=== PATIENT | male | born 1950 | race Hispanic/Latino ===

== ENCOUNTER 2018-01-20 17:03 | Emergency (ER) | payer OTHER ==
--- OUTSIDE RECORDS SUMMARY | 2018-01-20 17:04 | XMS REPORT ---
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 Active Problem Hyperlipidemia E78.5 Active Problem Cholelithiasis without K80.20 Active cholecystitis Problem Essential hypertriglyceridemia E78.1 Active Problem Varicose veins I86.8 Active Problem Chronic back pain M54.9 Active Problem Osteoarthritis, multiple sites M15.9 Active Problem Chronic generalized pain R52 Active Problem Depression with anxiety F41.8 Active Problem Screening for prostate cancer Z12.5 Active Problem 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
--- OUTSIDE RECORDS SUMMARY | 2018-01-20 17:04 | XMS REPORT ---
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 Active Assessment Spinal stenosis of lumbar region M48.062 Active with neurogenic claudication Assessment GERD (gastroesophageal reflux K21.9 Active disease) Assessment Mild chronic anemia D64.9 Active Problem DJD (degenerative joint disease) M19.90 Active Assessment Depression with anxiety F41.8 Active Problem Overweight E66.3 Active Assessment Hyperlipidemia E78.5 Active Problem GERD (gastroesophageal reflux K21.9 Active disease) Problem Hypertension I10 Active Problem Hypothyroidism E03.9 Active Problem Spinal stenosis of lumbar region M48.062 Active with neurogenic claudication Problem Mild chronic anemia D64.9 Active Assessment Hypertension I10 Active Problem Chronic fatigue R53.82 Active Assessment Hypothyroidism E03.9 Active Problem Spondylosis of lumbar spine M47.816 [...] or M51.37 Active lumbosacral intervertebral disc Problem Pulmonary fibrosis J84.10 Active Medications Medication Code Code Instructions Start End Status Dosage System Date Lipitor [facility] 51083998330 20 MG Orally Active 1 tablet Once a day Levothyroxine ND 19541496961 75 MCG Orally Active 1 tablet Sodium Once a day on an empty stomach in the morning Ventolin HFA ND 33752863682 108 (90 Base) Active 2 puffs as MCG/ACT needed Inhalation every 6 hrs Norvasc [facility] 02458012885 5 MG Orally Active 1 tablet Once a day Citalopram [facility] 20218527337 20 MG Orally Active 1 tablet Hydrobromide Once a day Zyrtec Allergy [facility] 54936438285 10 MG Orally Active 1 tablet Once a day Cozaar [facility] 20649574402 100 MG Orally Active 1 tablet Once a day Aspir-81 [facility] 58888041701 81 MG Orally Active 1 tablet Once a day Ferrous Sulfate [facility] 34349216455 325 (65 Fe) MG August 26, Active 1 tablet Orally Once a 2017 day [place]iner [facility] 05593527236 7.5-325 MG Active 1 tablet Orally every 8 as needed hrs Nitrostat [facility] 97985896708 0.4 MG Active not Sublingual defined Protonix [facility] 27862997872 40 MG Orally Active 1 tablet Once a day Lyrica [facility] 55236898310 200 MG Orally Active 1 capsule Twice a day Results No Known Results Summary Purpose eClinicalWorks Submission
--- OUTSIDE RECORDS SUMMARY | 2018-01-20 17:04 | XMS REPORT ---
[...] Instructions Start End Status Dosage System Date Date Citalopram [facility] 78455335450 20 MG Orally Active 1 tablet Hydrobromide Once a day Nitrostat [facility] 55932207175 0.4 MG Active not Sublingual defined Aspir-81 [facility] 56038586938 81 MG Orally Active 1 tablet Once a day Zyrtec Allergy [facility] 25327158136 10 MG Orally Active 1 tablet Once a day Lyrica NDC 30655719158 200 MG Orally Active 1 capsule Twice a day Lipitor [facility] 34788498131 20 MG Orally Active 1 tablet Once a day Ferrous Sulfate [facility] 70788988822 325 (65 Fe) MG Active 1 tablet Orally twice a day [place] [facility] 62600429267 7.5-325 MG Active 1 tablet Orally every 8 as needed hrs Cozaar [facility] 96879729994 100 MG Orally Active 1 tablet Once a day Ventolin HFA [facility] 02350282090 108 (90 Base) Active 2 puffs as MCG/ACT needed Inhalation every 6 hrs Levothyroxine [facility] 72666401139 75 MCG Orally Active 1 tablet Sodium Once a day on an empty stomach in the morning Protonix [facility] 33298701747 40 MG Orally Active 1 tablet Once a day Norvasc [facility] 78885310246 5 MG Orally Active 1 tablet Once a day Results No Known Results Summary Purpose eClinicalWorks Submission
[2018-01-20] MEDS ORDERED: KETOROLAC 30 MG/ML INJ ONE (18:06)
[2018-01-20 18:14] LABS: Absolute Lymphocytes (CBC) 2.4 K/uL (0.7-4.9); Absolute Monocytes 0.7 K/uL (0.1-1.3); Absolute Neutrophil 4.6 K/uL (1.8-8.0); Basophils % 0.7 % (0-1.3); Hematocrit 36.2 % (39.6-49.0); MCH 32.5 pg (27.0-35.0); MCV 94.5 fL (80-100); Monocytes % 9.5 % (3.3-12.3); RBC Red Blood Cell Count 3.83 M/uL (4.33-5.43)
--- NOTE | 2018-01-20 18:22 | RAD REPORT ---
EXAM DESCRIPTION: RAD - Pelvis - 01/20/2018 6:12 pm CLINICAL HISTORY: Pelvic pain FINDINGS: No fracture or dislocation is seen. Mild osteoarthritis involves the hips. Bones are osteoporotic
[2018-01-20 18:23] LABS: Potassium 3.8 mmol/L (3.5-5.1)
--- NOTE | 2018-01-20 18:26 | RAD REPORT ---
EXAM DESCRIPTION: RAD - Lumbar Spine 3 Views - 01/20/2018 6:14 pm CLINICAL HISTORY: Back pain FINDINGS: The alignment of the lumbar spine is satisfactory. No fracture or dislocation is seen. The bones are osteoporotic. Posterior fusion involves L4 through S1 by pedicular screws united by sherman s
[2018-01-20 18:56] LABS: Urine Blood NEGATIVE (NEG); Urine Glucose NEGATIVE (NEG); Urine Protein NEGATIVE (NEG); Urine Specific Gravity 1.015 (1.005-1.030); Urine pH 5.5 (5.0-7.0)
--- NOTE | 2018-01-20 19:39 | ER ---
Nurse's Notes [facility] Name: Herb Link Age: 67 yrs Sex: Male : 1950 Arrival Date: 01/20/2018 Time: 17:05 Bed 14 Private MD: Kat Tapia Diagnosis: Low back pain;Neck Pain;Pain in left leg;Pain in right leg Presentation: 01/20 17:30 Presenting complaint: Patient states: bilateral leg and foot pain x 3 weeks. Pt reports ss that the bottom of his feet are bothering him the most. Transition of care: patient was not received from another setting of care. Onset of symptoms is unknown. Risk Assessment: Do you want to hurt yourself or someone else? Patient reports no desire to harm self or others. Initial Sepsis Screen: Does the patient meet any 2 criteria? No. Patient's initial sepsis screen is negative. Does the patient have a suspected source of infection? No. Patient's initial sepsis screen is negative. Note Pt reports history of chronic back problems. Care prior to arrival: None. 17:30 Method Of Arrival: Ambulatory ss 17:30 Acuity: FRIDA 4 ss Historical: - Allergies: 17:42 No Known Allergies; ss - PMHx: 17:42 Hypertension; Hypothyroidism; chronic back pain; ss - PSHx: 17:42 back surgery; left shoulder; cardiac stent; ss - Immunization history:: Adult Immunizations up to date. - Social history:: Smoking status: Patient/guardian denies using tobacco. - Ebola Screening: : Patient denies exposure to infectious person Patient denies travel to an Ebola-affected area in the 21 days before illness onset. Screenin:49 Abuse screen: Denies threats or abuse. Denies injuries from another. Nutritional bp screening: No deficits noted. Tuberculosis screening: No symptoms or risk factors identified. Fall Risk None identified. Assessment: 17:30 General: Appears in no apparent distress. comfortable, Behavior is calm, cooperative, bp appropriate for age. Pain: Complains of pain in right leg and left leg. Neuro: Level of Consciousness is awake, alert, obeys commands, Oriented to person, place, time, situation, Appropriate for age. Cardiovascular: No deficits noted. Respiratory: Airway is patent Respiratory effort is even, unlabored, Respiratory pattern is regular, symmetrical. GI: No signs and/or symptoms were reported involving the gastrointestinal system. : No signs and/or symptoms were reported regarding the genitourinary system. EENT: No deficits noted. Derm: No deficits noted. Musculoskeletal: Circulation, motion, and sensation intact. Range of motion: intact in all extremities. 18:30 Reassessment: ALL CURRENT ORDERS COMPLETED, RESULTS PENDING. bp 19:15 Reassessment: Patient appears in no apparent distress at this time. Patient and/or jb4 family updated on plan of care and expected duration. Pain level reassessed. Patient is alert, oriented x 3, equal unlabored respirations, skin warm/dry/pink. Patient states feeling better. Cardiovascular: Patient's skin is warm and dry. Respiratory: Airway is patent Respiratory effort is even, unlabored, Respiratory pattern is regular, symmetrical. 19:49 Reassessment: Patient appears in no apparent distress at this time. Patient and/or jb4 family updated on plan of care and expected duration. Pain level reassessed. Patient is alert, oriented x 3, equal unlabored respirations, skin warm/dry/pink. Discussed D/c, F/u with pt, and family member, denies questions or concerns. Vital Signs: 17:42 BP 126 / 83; Pulse 74; Resp 17; Temp 97.7(TE); Pulse Ox 97% on R/A; Weight 71.21 kg; ss Pain 9/10; 18:28 BP 124 / 80; Pulse 68; Resp 14; Pulse Ox 95% ; bp 19:00 BP 116 / 76; Pulse 66; Resp 16; Pulse Ox 95% on R/A; jb4 19:30 BP 113 / 83; Pulse 66; Resp 18; Pulse Ox 95% on R/A; jb4 ED Course: 17:05 Patient arrived in ED. sb2 17:06 Kat Tapia MD is Private Physician. sb2 17:20 [facility] cp 17:20 Naya Jefferson MD is Attending Physician. cp 17:32 Gigi Baltazar, CINDY is Primary Nurse. bp 17:40 Triage completed. ss 17:42 Arm band placed on right wrist. ss 17:48 Inserted saline lock: 18 gauge in right antecubital area, using aseptic technique. bp Blood collected. 17:49 Patient has correct armband on for positive identification. Bed in low position. Call bp light in reach. Side rails up X2. 18:13 XRAY Lumbar Spine (3 Views) In Process Unspecified. EDMS 18:13 XRAY Pelvis In Process Unspecified. EDMS 19:26 XRAY C Spine Ap/lat In Process Unspecified. EDMS 19:30 No provider procedures requiring assistance completed. IV discontinued, intact, jb4 bleeding controlled. 19:37 Kat Tapia MD is Referral Physician. cp Administered Medications: 18:02 Drug: TORadol 60 mg Route: IM; Site: right deltoid; bp 19:30 Follow up: Response: No adverse reaction; Pain is decreased jb4 Outcome: 19:38 Discharge ordered by MD. cp 19:52 Discharged to home ambulatory, with family. jb4 19:52 Condition: stable 19:52 Discharge instructions given to patient, family, Instructed on discharge instructions, follow up and referral plans. medication usage, Demonstrated understanding of instructions, follow-up care, medications, Prescriptions given X 2. 19:52 Patient left the ED. jb4 Signatures: Dispatcher [employer] EDMS Glenys Cabrera, RN RN Rasta Sanabria, PA PA cp Ivan Gilmore, RN RN jb4 Gigi Baltazar, RN RN bp Flores Harrell sb2
--- NOTE | 2018-01-20 19:39 | EDPHYS ---
Physician Documentation [facility] Name: Herb Link Age: 67 yrs Sex: Male : 1950 Arrival Date: 01/20/2018 Time: 17:05 Bed 14 Private MD: Kat Tapia ED Physician Naya Jefferson HPI: 01/20 17:35 This 67 yrs old Male presents to ER via Ambulatory with complaints of Leg Pain.cp 17:35 The patient presents with pain, that is acute. The complaints affect the right leg and cp left leg. Context: resulted from an unknown cause, the patient can fully bear weight, the patient is able to ambulate, without difficulty, Problem is a result from a previous injury: No. Onset: The symptoms/episode began/occurred 3 week(s) ago. Historical: - Allergies: 17:42 No Known Allergies; ss - PMHx: 17:42 Hypertension; Hypothyroidism; chronic back pain; ss - PSHx: 17:42 back surgery; left shoulder; cardiac stent; ss - Immunization history:: Adult Immunizations up to date. - Social history:: Smoking status: Patient/guardian denies using tobacco. - Ebola Screening: : Patient denies exposure to infectious person Patient denies travel to an Ebola-affected area in the 21 days before illness onset. ROS: 17:40 Constitutional: Negative for body aches, chills, fever, poor PO intake. cp 17:40 Eyes: Negative for injury, pain, redness, and discharge. cp 17:40 Cardiovascular: Negative for chest pain, edema, palpitations. cp 17:40 Respiratory: Negative for cough, shortness of breath, wheezing. 17:40 Neck: Positive for pain with movement, pain at rest, tenderness. cp 17:40 Abdomen/GI: Negative for abdominal pain, nausea, vomiting, and diarrhea, black/tarry stool, rectal bleeding. 17:40 Back: Positive for pain at rest, pain with movement, of the lumbar area. 17:40 : Negative for urinary symptoms, pelvic pain, flank pain, testicular pain 17:40 MS/extremity: Positive for pain, of the right leg and left leg, burning bottom of feet, Negative for injury or acute deformity, decreased range of motion, deformity, paresthesias. 17:40 Skin: Negative for cellulitis, rash. 17:40 Neuro: Negative for altered mental status, headache, syncope, near syncope, weakness. 17:40 All other systems are negative. Exam: 17:48 Head/Face: Normocephalic, atraumatic. cp 17:48 Constitutional: The patient appears in no acute distress, alert, awake, comfortable, non-diaphoretic, non-toxic, well developed, well nourished. 17:50 Eyes: Periorbital structures: appear normal, Pupils: equal, round, and reactive to cp light and accomodation, Extraocular movements: intact throughout, Conjunctiva: normal, no exudate, no injection, Sclera: no appreciated abnormality, Lids and lashes: appear normal, bilaterally. 17:50 ENT: External ear(s): are unremarkable, Ear canal(s): are normal, clear, TM's: bulging, is not appreciated, bilaterally, dullness, bilaterally, erythema, is not appreciated, bilaterally, Nose: is normal, Mouth: is normal, Posterior pharynx: is normal, airway is patent, no erythema, no exudate. 17:50 Neck: ROM/movement: pain, that is mild, limited range of motion, is not appreciated, cp nuchal rigidity, is not appreciated, Lymph nodes: no appreciated lymphadenopathy. 17:50 Chest/axilla: Inspection: normal, Palpation: is normal, no crepitus, no tenderness. 17:50 Cardiovascular: Rate: normal, Rhythm: regular, Edema: is not appreciated, JVD: is not appreciated. 17:50 Respiratory: the patient does not display signs of respiratory distress, Respirations: normal, no use of accessory muscles, no retractions, no splinting, no tachypnea, labored breathing, is not present, Breath sounds: are clear throughout, no decreased breath sounds, no stridor, no wheezing. 17:50 Abdomen/GI: Inspection: abdomen appears normal, Bowel sounds: active, all quadrants, Palpation: abdomen is soft and non-tender, in all quadrants, rebound tenderness, is not appreciated, involuntary guarding, is not appreciated. 17:50 Back: pain, that is mild, ROM is normal, vertebral tenderness, is not appreciated, Straight leg raises: of both lower extremities does not illicit pain. 17:50 Musculoskeletal/extremity: Extremities: grossly normal except: noted in the right leg and left leg: pain, tenderness, There is no evidence of decreased ROM, deformity, swelling, Pulses: noted to be 2+ in the right radial artery, right dorsalis pedis artery, left radial artery and left dorsalis pedis artery, Calf tenderness, is absent, Sensation intact. Joints: All joints appear normal with full range of motion. Weight bearing: able to fully bear weight. 17:50 Skin: cellulitis, is not appreciated, no rash present. 17:50 Neuro: Orientation: to person, place \T\ time. Mentation: is normal, Cerebellar function: is grossly normal, Motor: moves all fours, strength is normal, Sensation: no obvious gross deficits, Gait: is steady, at a normal pace, without difficulty. Vital Signs: 17:42 BP 126 / 83; Pulse 74; Resp 17; Temp 97.7(TE); Pulse Ox 97% on R/A; Weight 71.21 kg; ss Pain 9/10; 18:28 BP 124 / 80; Pulse 68; Resp 14; Pulse Ox 95% ; bp 19:00 BP 116 / 76; Pulse 66; Resp 16; Pulse Ox 95% on R/A; jb4 19:30 BP 113 / 83; Pulse 66; Resp 18; Pulse Ox 95% on R/A; jb4 MDM: 17:20 Patient medically screened. 19:37 Data reviewed: vital signs, nurses notes, lab test result(s), radiologic studies, plain cp films, and as a result, I will discharge patient. 01/20 17:35 Order name: CBC with Diff; Complete Time: 18:43 cp 01/20 18:43 Interpretation: Normal except: RBC 3.83; HGB 12.4; HCT 36.2. cp 01/20 17:35 Order name: BMP; Complete Time: 18:43 cp 01/20 18:43 Interpretation: Normal except: CL 109; BUN 23; GFR 66; CA 8.4. 01/20 17:34 Order name: XRAY Lumbar Spine (3 Views); Complete Time: 18:43 cp 01/20 17:34 Order name: XRAY Pelvis; Complete Time: 18:43 cp 01/20 17:35 Order name: CK; Complete Time: 18:43 cp 01/20 18:01 Order name: Urine Dipstick--Ancillary (enter results); Complete Time: 19:40 eb 01/20 19:40 Interpretation: Reviewed. cp 01/20 17:34 Order name: Urine Dipstick-Ancillary (obtain specimen); Complete Time: 18:02 cp 01/20 19:00 Order name: XRAY C Spine Ap/lat cp Administered Medications: 18:02 Drug: TORadol 60 mg Route: IM; Site: right deltoid; bp 19:30 Follow up: Response: No adverse reaction; Pain is decreased jb4 Disposition: 01/20/18 19:38 Discharged to Home. Impression: Low back pain, Neck Pain, Pain in left leg, Pain in right leg. - Condition is Stable. - Discharge Instructions: Back Pain, Adult, Lumbosacral Radiculopathy, Musculoskeletal Pain, Peripheral Neuropathy, Back Exercises, [id number]. - Prescriptions for Cyclobenzaprine 10 mg Oral Tablet - take 1 tablet by ORAL route every 8 hours As needed no driving while taking medication; 20 tablet. Medrol (Chucky) 4 mg Oral Tablets, Dose Pack - take 1 tablet by ORAL route as directed - follow package instructions; 1 packet. - Medication Reconciliation Form, Thank You Letter, Antibiotic Education, Prescription Opioid Use form. - Follow up: Kat Tapia MD; When: 2 - 3 days; Reason: Recheck today's complaints. - Problem is new. - Symptoms have improved. Addendum: 01/24/2018 17:25 Co-signature as Attending Physician, Naya Jefferson MD. m a2 Signatures: Dispatcher [employer] EDMS Glenys Cabrera RN RN ss Page, Corey, PA PA cp Ivan Gilmore RN RN jb4 Gigi Baltazar RN RN bp Alzahri, Mohammad, MD MD ma2 Corrections: (The following items were deleted from the chart) 01/20 18:43 18:43 Normal except: CL 109; BUN 23; GFR 66. cp cp 19:52 19:38 01/20/2018 19:38 Discharged to Home. Impression: Low back pain; Neck Pain; Pain jb4 in left leg; Pain in right leg. Condition is Stable. Forms are Medication Reconciliation Form, Thank You Letter, Antibiotic Education, Prescription Opioid Use. Follow up: Kat Tapia; When: 2 - 3 days; Reason: Recheck today's complaints. Problem is new. Symptoms have improved. cp
--- NOTE | 2018-01-20 19:52 | RAD REPORT ---
EXAM DESCRIPTION: RAD - C Spine Ap/Lat - 01/20/2018 7:26 pm CLINICAL HISTORY: Neck pain FINDINGS: The alignment of the cervical spine is satisfactory. No fracture or dislocation is seen. Minimal spondylosis involves mid and distal cervical spine
[2018-01-20 20:50] VITALS: TEMP 97.7
[2018-01-20 20:51] VITALS: O2SAT 95
[2018-01-20 20:53] VITALS: BP 113/83
== END 2018-01-20 19:52 | disposition home or self-care (01) ==
LOC: ER 17:03
DX: M54.5 Low back pain (principal); M54.2 Cervicalgia; M79.605 Pain in left leg; M79.604 Pain in right leg; M16.0 Bilateral primary osteoarthritis of hip; M81.0 Age-related osteoporosis without current pathological fracture; Z98.1 Arthrodesis status
CPT/HCPCS: 36415; 72040; 72100; 72170; 80048; 81003; 82550; 85025; 96372; 99284

== ENCOUNTER 2020-12-20 13:42 | Emergency (ER) | payer OTHER ==
[2020-12-20] MEDS ORDERED: TETANUS & DIPHTHERIA TOX,ADULT 0.5 ML VIAL ONE (15:22)
--- NOTE | 2020-12-20 16:14 | RAD REPORT ---
EXAM DESCRIPTION: RAD - Hand Left 3 View - 12/20/2020 3:26 pm CLINICAL HISTORY: PAIN, no specific trauma history provided COMPARISON: Left hand 2009 FINDINGS: PA and lateral views of the left hand were submitted. There is gauze or bandaging material second digit at the PIP joint level. Numerous punctate radiopaque densities are present in the soft tissues. These are new from the prior study. No gross fracture is identified. The punctate densities appear to be foreign bodies rather than bone fragments. Fracture of the radial side second proximal p halanx head cannot be entirely excluded. Changes to the tuft of the second distal phalanx unchanged from 2009. Punctate foreign bodies near th e second MCP joint also stable from prior imaging. IMPRESSION: Soft tissue wound around the PIP joint second digit. Punctate foreign bodies are identif ied near the joint as well. Foreign bodies could potentially be skin contamination and can be re-evaluated after wound cleaning. No gross acute bone deformity seen. Nondisplaced fracture involving the radial side second proximal p halanx head cannot be entirely excluded.
--- NOTE | 2020-12-20 17:16 | EDPHYS ---
Physician Documentation [facility] Name: Herb Pearce Age: 70 yrs Sex: Male : 1950 Arrival Date: 12/20/2020 Time: 13:45 Bed 30 Private MD: ED Physician Rasta Hughes HPI: 12/20 14:21 This 70 yrs old Male presents to ER via Ambulatory with complaints of jmm Laceration - finger. 14:21 The patient or guardian reports injury, a laceration, dirty. Onset: The jmm symptoms/episode began/occurred acutely, today. Modifying factors: The symptoms are alleviated by nothing, the symptoms are aggravated by nothing. Patient lacerated his left index finger while using a sharpening saw.. Not up-to-date on tetanus immunization. Historical: - Allergies: 14:06 No Known Allergies; lp1 - PMHx: 14:06 chronic back pain; Hypertension; Hypothyroidism; lp1 - Immunization history:: Adult Immunizations up to date, Last tetanus immunization: unknown. - Social history:: Smoking status: Patient denies any tobacco usage or history of. ROS: 14:21 Constitutional: Negative for fever, chills, and weight loss, Cardiovascular: Negative jmm for chest pain, palpitations, and edema, Respiratory: Negative for shortness of breath, cough, wheezing, and pleuritic chest pain. 14:21 MS/extremity: Positive for laceration. 14:21 All other systems are negative. Exam: 14:21 Constitutional: This is a well developed, well nourished patient who is awake, alert, jmm and in no acute distress. Head/Face: atraumatic. Eyes: EOMI, no conjunctival erythema appreciated ENT: Moist Mucus Membranes Neck: Trachea midline, Supple Chest/axilla: Normal chest wall appearance and motion. Cardiovascular: Regular rate and rhythm. No edema appreciated Respiratory: Normal respirations, no respiratory distress appreciated Abdomen/GI: Non distended, soft Back: Normal ROM 14:21 Musculoskeletal/extremity: Full extension appreciated to the PIP of the left index finger, less than 2-second capillary refill, neurovascular intact. 14:21 Skin: 3 cm laceration noted to the left index finger.. 14:21 Neuro: Orientation: is normal, Mentation: is normal, Memory: is normal. 14:21 Psych: Behavior/mood is pleasant, cooperative. Vital Signs: 14:04 BP 128 / 78; Pulse 80; Resp 18; Temp 98; Pulse Ox 98% on R/A; Weight 77.11 kg (R); lp1 Height 5 ft. 6 in. (167.64 cm); Pain 8/10; 14:04 Body Mass Index 27.44 (77.11 kg, 167.64 cm) lp1 Laceration: 17:15 Wound Repair of 3cm ( 1.2in ) subcutaneous laceration to dorsal aspect of proximal jmm phalanx of left index finger. Distal neuro/vascular/tendon intact. Anesthesia: Digital block administered with 3 mls of 0.5% marcaine. Wound prep: Extensive cleansing, Copious irrigation. Skin closed with 7 5-0 Prolene using simple sutures and sterile technique. Patient tolerated well. MDM: 14:21 Patient medically screened. trip 17:15 Data reviewed: vital signs, nurses notes. Counseling: I had a detailed discussion with ankur the patient and/or guardian regarding: the historical points, exam findings, and any diagnostic results supporting the discharge/admit diagnosis, radiology results, the need for outpatient follow up, to return to the emergency department if symptoms worsen or persist or if there are any questions or concerns that arise at home. 12/20 14:44 Order name: Hand Left 3 View XRAY; Complete Time: 16:18 [facility] Administered Medications: 15:02 Drug: Tetanus-Diphtheria Toxoid Adult 0.5 ml {M[employer]: [employer]. Exp: aa5 07/18/2022. Lot #: [id number]. } Route: IM; Site: right deltoid; 15:20 Follow up: Response: No adverse reaction aa5 Disposition: 12/21 16:20 Co-signature as Attending Physician, Rasta Hughes MD I agree with the assessment and trip plan of care. Disposition Summary: 12/20/20 17:16 Discharge Ordered Location: Home [facility] Condition: Stable [facility] Diagnosis - Finger Laceration [facility] Followup: [facility] - With: Private Physician - When: 7 - 10 days - Reason: Recheck today's complaints, Continuance of care, Re-evaluation by your physician Discharge Instructions: - Discharge Summary Sheet [facility] - Laceration Care, Adult [facility] Forms: - Medication Reconciliation Form [facility] - Thank You Letter jmm - Antibiotic Education jmm - Prescription Opioid Use jmleonor Prescriptions: - Doxycycline Hyclate 100 mg Oral Tablet - take 1 tablet by ORAL route every 12 hours; 20 tablet; Refills: 0, Product ankur Selection Permitted Signatures: Dispatcher [employer] Rasta Rodarte MD MD cha Mickail, Joel, PA PA jmm Calderon, Audri RN RN aa5 Mariella Siddiqui RN RN lp1
--- NOTE | 2020-12-20 17:16 | ER ---
Nurse's Notes [facility] Name: Herb Pearce Age: 70 yrs Sex: Male : 1950 Arrival Date: 12/20/2020 Time: 13:45 Bed 30 Private MD: Diagnosis: Finger Laceration Presentation: 12/20 14:04 Chief complaint: Patient states: Was using precision grinder to sharpen tool and finger slipped; lp1 laceration to left 1st finger, bleeding stopped at this time. Coronavirus screen: At this time, the client does not indicate any symptoms associated with coronavirus-19. Ebola Screen: No symptoms or risks identified at this time. Complicating Factors: There are no complicating factors for this patient. Initial Sepsis Screen: Does the patient meet any 2 criteria? No. Patient's initial sepsis screen is negative. Does the patient have a suspected source of infection? No. Patient's initial sepsis screen is negative. Risk Assessment: Do you want to hurt yourself or someone else? Patient reports no desire to harm self or others. Onset of symptoms was December 20, 2020. 14:04 Method Of Arrival: Ambulatory lp1 14:04 Acuity: FRIDA 4 lp1 Historical: - Allergies: 14:06 No Known Allergies; lp1 - PMHx: 14:06 chronic back pain; Hypertension; Hypothyroidism; lp1 - Immunization history:: Adult Immunizations up to date, Last tetanus immunization: unknown. - Social history:: Smoking status: Patient denies any tobacco usage or history of. Screenin:06 Abuse screen: Denies threats or abuse. Denies injuries from another. Nutritional lp1 screening: No deficits noted. Tuberculosis screening: No symptoms or risk factors identified. Fall Risk None identified. Assessment: 15:00 General: Appears comfortable, Behavior is calm, cooperative. Pain: Complains of pain in aa5 left index finger. Neuro: Level of Consciousness is awake, alert, obeys commands, Oriented to person, place, time, situation. Cardiovascular: Patient's skin is warm and dry. Respiratory: Airway is patent Respiratory effort is even, unlabored, Respiratory pattern is regular, symmetrical. GI: Abdomen is round non-distended. : No signs and/or symptoms were reported regarding the genitourinary system. EENT: No signs and/or symptoms were reported regarding the EENT system. Derm: Skin is pink, warm \T\ dry. Musculoskeletal: Reports pain in left index finger. Injury Description: Laceration sustained to left index finger is 2.6 to 7.5 cm long, is bleeding a small amount a dressing was applied. 15:04 Reassessment: Patient is alert, oriented x 3, equal unlabored respirations, skin aa5 warm/dry/pink. Awaiting x-ray result. 17:00 Reassessment: PA irrigated wound to left index finger with saline and Betadine prior to aa5 laceration repair. . 17:30 Reassessment: Patient is alert, oriented x 3, equal unlabored respirations, skin aa5 warm/dry/pink. Vital Signs: 14:04 BP 128 / 78; Pulse 80; Resp 18; Temp 98; Pulse Ox 98% on R/A; Weight 77.11 kg (R); lp1 Height 5 ft. 6 in. (167.64 cm); Pain 8/10; 14:04 Body Mass Index 27.44 (77.11 kg, 167.64 cm) lp1 ED Course: 13:45 Patient arrived in ED. as 14:06 Triage completed. lp1 14:06 Arm band placed on right wrist. lp1 14:06 Patient has correct armband on for positive identification. lp1 14:15 Leobardo Ford PA is PHCP. [facility] 14:15 Rasta Hughes MD is Attending Physician. [facility] 15:02 Raquel Hall, CINDY is Primary Nurse. aa5 15:26 Hand Left 3 View XRAY In Process Unspecified. EDMS 17:00 Assist provider with laceration repair on left index finger that was between 2.6 to 7.5 aa5 cm using sutures. Set up tray. Performed by Leobardo Ford PA Dressed with non-adherent dressing and finger splint to immobilize finger per PA. Patient tolerated well. 17:30 Patient did not have IV access during this emergency room visit. aa5 Administered Medications: 15:02 Drug: Tetanus-Diphtheria Toxoid Adult 0.5 ml {Front Desk Representative: [employer]. Exp: aa5 07/18/2022. Lot #: [id number]. } Route: IM; Site: right deltoid; 15:20 Follow up: Response: No adverse reaction aa5 Outcome: 17:16 Discharge ordered by MD. pascual 17:30 Discharged to home ambulatory, with family. aa5 17:30 Condition: stable 17:30 Discharge instructions given to patient, family, Instructed on discharge instructions, follow up and referral plans. medication usage, wound care, Demonstrated understanding of instructions, follow-up care, medications, wound care, Prescriptions given X 1. 17:40 Patient left the ED. aa5 Signatures: Dispatcher [employer] EDMS Leobardo Ford PA PA jmm Martinez, Amelia as Calderon, Audri, RN RN aa5 Mariella Siddiqui, RN RN lp1
[2020-12-20 17:48] VITALS: BP 128/78; TEMP 98; O2SAT 98
== END 2020-12-20 17:40 | disposition home or self-care (01) ==
LOC: ER 13:42
PROC: 0JQK0ZZ Repair Left Hand Subcutaneous Tissue and Fascia, Open Approach (ICD-10-PCS; principal; 2020-12-20)
DX: S61.211A Laceration without foreign body of left index finger without damage to nail, initial encounter (principal); W27.0XXA Contact with workbench tool, initial encounter; Z23 Encounter for immunization; I10 Essential (primary) hypertension
CPT/HCPCS: 90471; 90714; 99284

== ENCOUNTER 2022-09-20 14:34 | Emergency (ER) | payer OTHER ==
--- OUTSIDE RECORDS SUMMARY | 2022-09-20 14:39 | XMS REPORT | Continuity of Care Document ---
:1950 Author Organization [facility] t Address [address] [place] [address] [place] [id number] Care Team Providers Name Role Phone Maral Medeiros Attending Clinician Unavailable Kat Tapia Attending Clinician Unavailable Payers Payer Name Policy Type Policy Number Effective Date Expiration Date [facility] [id number] [facility] 00:[facility] [facility] MEDICARE MB [id number] 2013 [facility] N[facility]ITAS 00:00:00 - [facility] [id number] 2017 [facility] 00:00:00 - [facility] MEDICARE [id number] 2013 [facility] [place]OVIT[place] 00:00:00 - [facility] [id number] 2017 [facility] 00:00:[address] - [facility] MEDICARE MB [id number] 2013 [facility] [place] 00:00:[address] - [facility] MEDICARE MB [id number] 2013 [facility] NOVITAS 00:00:00 [facility] [id number] 2017 [facility] 00:00:00 [facility] Problems Condition Condition Condition Status Onset Resolution Last Treating Co mments Source Name Details Category Date Date Treatment Clinician Date Screening Screening Problem Com mon for for Spirit malignant prostate - 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 - [facility] disease) [facility] Hypertensi Hypertensi Problem C ommon on on [facility] Hypothyroi Hypothyroi Problem C ommon dism dism [facility] Overweight Overweight Problem C ommon [facility] 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 [facility] Hyperlipid Hyperlipid Problem C ommon emia emia [facility] Pain Chronic Problem Common generalize Spirit d pain - [facility] 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 Medica l claudicati Center on [id number] Chronic Problem Common fatigue [facility] Allergic Allergic Problem Commo n rhinitis rhinitis, Spiri t unspecifie - [facility] d [facility] y, Medical unspecifie Center d trigger Allergies, Adverse Reactions, Alerts Allergy Allergy Status Severity Reaction(s) Onset Inactive Treating Comm ents Source Name Type Date Date Clinician lisinopr lisinopr Active Unknown Commo n il il [facility] Social History Social Habit Start Date Stop Date Quantity Comments Source History of Tobacco Use Co mmon [facility] Sex Assigned At Com mon [facility] Smoking Status Start Date Stop Date Source Never Smoker Common [facility] Medications Ordered Filled Start Stop Current Ordering Indication Dosage Frequency Signature Comments Components Source Medication Medication Date Date Medication? Clinician (SIG) Name Name Lyrica 200 Lyrica 200 2021-03 No 1{capsu QD Lyrica 200 MG MG 1-30 le} MG 00:00: 00 Flonase 50 Flonase 50 2021-03 No 2{spray QD Flonase 50 MCG/ACT MCG/ACT 1-30 _in_eac MCG/ACT 00:00: h_nostr 00 il} Pregabalin Pregabalin 2021-03 No Pregabalin 200 MG 200 MG 0-28 200 MG 00:00: 00 Pregabalin Pregabalin 2021-03 No Pregabalin 200 MG 200 MG 0-28 200 MG 00:00: 00 Lyrica 200 Lyrica 200 2021-0 No 1{capsu TID Lyrica 200 MG MG 6-20 le} MG 00:00: 00 Lyrica 200 Lyrica 200 2021-0 No 1{capsu TID Lyrica 200 MG MG 6-20 le} MG 00:00: 00 Lyrica 200 Lyrica 200 2021-0 No 1{capsu BID Lyrica 200 MG MG 5-13 le} MG 00:00: 00 Lyrica 200 Lyrica 200 2021-0 No 1{capsu BID Lyrica 200 MG MG 5-13 le} MG 00:00: 00 Lyrica 200 Lyrica 200 2021-0 No 1{capsu BID Lyrica 200 MG MG 2-03 le} MG 00:00: 00 Lyrica 200 Lyrica 200 2021-0 No 1{capsu BID Lyrica 200 MG MG 2-03 le} MG 00:00: 00 Zofran Zofran 2020-0 Yes Na Tapia 1 tablet Co mmon -27 [facility] 00:00: - [facility] 00 [facility] Zofran 4 MG Zofran 4 MG 2020-0 No 1{table Zofran 4 1-27 t} MG 00:00: 00 Zofran 4 MG Zofran 4 MG 2020-0 No 1{table Zofran 4 1-27 t} MG 00:00: 00 Zofran 4 MG Zofran 4 MG 2020-0 No 1{table Zofran 4 1-27 t} MG 00:00: 00 Zofran 4 MG Zofran 4 MG 2020-0 No 1{table Zofran 4 1-27 t} MG 00:00: 00 Zofran 4 MG Zofran 4 MG 2020-0 No 1{table Zofran 4 1-27 t} MG 00:00: 00 Zofran 4 MG Zofran 4 MG 2020-0 No 1{table Zofran 4 1-27 t} MG 00:00: 00 Zofran 4 MG Zofran 4 MG 2020-0 No 1{table Zofran 4 1-27 t} MG 00:00: 00 Zofran 4 MG Zofran 4 MG 2020-0 No 1{table Zofran 4 1-27 t} MG 00:00: 00 Zofran 4 MG Zofran 4 MG 2020-0 No 1{table Zofran 4 1-27 t} MG 00:00: 00 Zofran 4 MG Zofran 4 MG 2020-0 No 1{table Zofran 4 1-27 t} MG 00:00: 00 Zofran 4 MG Zofran 4 MG 2020-0 No 1{table Zofran 4 1-27 t} MG 00:00: 00 Zofran 4 MG Zofran 4 MG 2020-0 No 1{table Zofran 4 1-27 t} MG 00:00: 00 Zofran 4 MG Zofran 4 MG 2020-0 No 1{table Zofran 4 1-27 t} MG 00:00: 00 Zofran 4 MG Zofran 4 MG 2020-0 No 1{table Zofran 4 1-27 t} MG 00:00: 00 Famotidine Famotidine 2019-1 Yes Na Tapia 1 tablet Common 2-04 as needed [facility] 00:00: - [facility] 00 [facility] Famotidine Famotidine 2019- No 1{table BID Famotidine 40 MG 40 MG 2-04 t_as_ne 40 MG 00:00: eded} Famotidine Famotidine 2018-03 No 1{table BID Famotidine 40 MG 40 MG 2-04 t_as_ne 40 MG 00:00: eded} Famotidine Famotidine 2018- No 1{table BID Famotidine 40 MG 40 MG 2-04 t_as_ne 40 MG 00:00: eded} Famotidine Famotidine 2018- No 1{table BID Famotidine 40 MG 40 MG 2-04 t_as_ne 40 MG 00:00: eded} Famotidine Famotidine 2018- No 1{table BID Famotidine 40 MG 40 MG 2-04 t_as_ne 40 MG 00:00: eded} Famotidine Famotidine 2018- No 1{table BID Famotidine 40 MG 40 MG 2-04 t_as_ne 40 MG 00:00: eded} Famotidine Famotidine 2018- No 1{table BID Famotidine 40 MG 40 MG 2-04 t_as_ne 40 MG 00:00: eded} Famotidine Famotidine 2018- No 1{table BID Famotidine 40 MG 40 MG 2-04 t_as_ne 40 MG 00:00: eded} Famotidine Famotidine 2018- No 1{table BID Famotidine 40 MG 40 MG 2-04 t_as_ne 40 MG 00:00: eded} Famotidine Famotidine 2018- No 1{table BID Famotidine 40 MG 40 MG 2-04 t_as_ne 40 MG 00:00: eded} Famotidine Famotidine 2018- No 1{table BID Famotidine 40 MG 40 MG 2-04 t_as_ne 40 MG 00:00: eded} Famotidine Famotidine 2018- No 1{table BID Famotidine 40 MG 40 MG 2-04 t_as_ne 40 MG 00:00: eded} -81 Yes Na Tapia 1 tablet [facility] [place] Yes Na Tapia 1 tablet Common as needed [facility] Lipitor Lipitor Yes Na Tapia 1 tablet Co mmon [facility] Lyrica Lyrica Yes Na Tapia 1 capsule Com mon [facility] Ferrous Ferrous Yes Na Tapia 1 tablet Co mmon Sulfate Sulfate [facility] Ventolin Ventolin Yes Na Tapia 2 puffs as Common HFA HFA needed [facility] Cozaar Cozaar Yes Na Tapia 1 tablet Comm on [facility] Nitrostat Nitrostat Yes Na Tapia not Co mmon defined [facility] Ferrous Ferrous Yes Na Tapia 1 tablet Co mmon Sulfate Sulfate [facility] Norvasc Norvasc Yes Na Tapia 1 tablet Co mmon [facility] Levothyroxi Levothyroxi Yes Na Tapia 1 tablet Common ne Sodium ne Sodium on an Spir it empty - [facility] stomach in [facility] Citalopram Citalopram Yes Na Tapia 1 tablet Common Hydrobromid Hydrobromid S pirit e e [facility] Ranitidine Ranitidine Yes Na Tapia 1 capsule Common HCl HCl [facility] Zyrtec Zyrtec Yes Na Tapia 1 tablet Comm on Allergy Allergy [facility] Lipitor 20 Lipitor 20 No 1{table QD Lipitor 20 MG MG t} MG Nitrostat Nitrostat No Nitrostat 0.4 MG 0.4 MG 0.4 MG [place] No 1{table TID [place] 7.5-325 MG 7.5-325 MG t_as_ne 7.5-325 MG eded} Levothyroxi Levothyroxi No QD Levothyrox ne Sodium ne Sodium ine Sodium 75 MCG 75 MCG 75 MCG Ventolin Ventolin No 2{puffs QID Ventolin HFA 108 (90 HFA 108 (90 _as_nee HFA 108 Base) Base) ded} (90 Base) MCG/ACT MCG/ACT MCG/ACT Famotidine Famotidine No 1{table BID Famotidine 40 MG 40 MG t_as_ne 40 MG eded} Ranitidine Ranitidine No 1{capsu BID Ranitidine HCl 150 MG HCl 150 MG le} HCl 150 MG Aspir-81 81 Aspir-81 81 No 1{table QD Aspir-81 MG MG t} 81 MG Citalopram Citalopram No 1{table QD Citalopram Hydrobromid Hydrobromid t} Hydrobromi e 20 MG e 20 MG de 20 MG Ferrous Ferrous No 1{table BID Ferrous Sulfate 325 Sulfate 325 t} Sulfate (65 Fe) MG (65 Fe) MG 325 (65 Fe) MG ZyrTEC ZyrTEC No 1{table QD ZyrTEC Allergy 10 Allergy 10 t} Allergy 10 MG MG MG Lyrica 200 Lyrica 200 No 1{capsu BID Lyrica 200 MG MG le} MG Norvasc 5 Norvasc 5 No 1{table QD Norvasc 5 MG MG t} MG Ferrous Ferrous No 1{table BID Ferrous Sulfate 325 Sulfate 325 t} Sulfate (65 Fe) MG (65 Fe) MG 325 (65 Fe) MG Cozaar 100 Cozaar 100 No 1{table QD Cozaar 100 MG MG t} MG Lipitor 20 Lipitor 20 No 1{table QD Lipitor 20 MG MG t} MG Nitrostat Nitrostat No Nitrostat 0.4 MG 0.4 MG 0.4 MG [place] No 1{table TID [place] 7.5-325 MG 7.5-325 MG t_as_ne 7.5-325 MG eded} Levothyroxi Levothyroxi No QD Levothyrox ne Sodium ne Sodium ine Sodium 75 MCG 75 MCG 75 MCG Ventolin Ventolin No 2{puffs QID Ventolin HFA 108 (90 HFA 108 (90 _as_nee HFA 108 Base) Base) ded} (90 Base) MCG/ACT MCG/ACT MCG/ACT Famotidine Famotidine No 1{table BID Famotidine 40 MG 40 MG t_as_ne 40 MG eded} Ranitidine Ranitidine No 1{capsu BID Ranitidine HCl 150 MG HCl 150 MG le} HCl 150 MG Aspir-81 81 Aspir-81 81 No 1{table QD Aspir-81 MG MG t} 81 MG Citalopram Citalopram No 1{table QD Citalopram Hydrobromid Hydrobromid t} Hydrobromi e 20 MG e 20 MG de 20 MG Ferrous Ferrous No 1{table BID Ferrous Sulfate 325 Sulfate 325 t} Sulfate (65 Fe) MG (65 Fe) MG 325 (65 Fe) MG ZyrTEC ZyrTEC No 1{table QD ZyrTEC Allergy 10 Allergy 10 t} Allergy 10 MG MG MG Lyrica 200 Lyrica 200 No 1{capsu BID Lyrica 200 MG MG le} MG Norvasc 5 Norvasc 5 No 1{table QD Norvasc 5 MG MG t} MG Ferrous Ferrous No 1{table BID Ferrous Sulfate 325 Sulfate 325 t} Sulfate (65 Fe) MG (65 Fe) MG 325 (65 Fe) MG Cozaar 100 Cozaar 100 No 1{table QD Cozaar 100 MG MG t} MG Ferrous Ferrous No 1{table BID Ferrous Sulfate 325 Sulfate 325 t} Sulfate (65 Fe) MG (65 Fe) MG 325 (65 Fe) MG Ventolin Ventolin No 2{puffs QID Ventolin HFA 108 (90 HFA 108 (90 _as_nee HFA 108 Base) Base) ded} (90 Base) MCG/ACT MCG/ACT MCG/ACT Levothyroxi Levothyroxi No QD Levothyrox ne Sodium ne Sodium ine Sodium 75 MCG 75 MCG 75 MCG Norvasc 5 Norvasc 5 No 1{table QD Norvasc 5 MG MG t} MG ZyrTEC ZyrTEC No 1{table QD ZyrTEC Allergy 10 Allergy 10 t} Allergy 10 MG MG MG Nitrostat Nitrostat No Nitrostat 0.4 MG 0.4 MG 0.4 MG Aspir-81 81 Aspir-81 81 No 1{table QD Aspir-81 MG MG t} 81 MG Citalopram Citalopram No 1{table QD Citalopram Hydrobromid Hydrobromid t} Hydrobromi e 20 MG e 20 MG de 20 MG Lipitor 20 Lipitor 20 No 1{table QD Lipitor 20 MG MG t} MG Ferrous Ferrous No 1{table BID Ferrous Sulfate 325 Sulfate 325 t} Sulfate (65 Fe) MG (65 Fe) MG 325 (65 Fe) MG Ranitidine Ranitidine No 1{capsu BID Ranitidine HCl 150 MG HCl 150 MG le} HCl 150 MG Lyrica 200 Lyrica 200 No 1{capsu BID Lyrica 200 MG MG le} MG Cozaar 100 Cozaar 100 No 1{table QD Cozaar 100 MG MG t} MG [place] No 1{table TID [place] 7.5-325 MG 7.5-325 MG t_as_ne 7.5-325 MG eded} Famotidine Famotidine No 1{table BID Famotidine 40 MG 40 MG t_as_ne 40 MG eded} Citalopram Citalopram No 1{table QD Citalopram Hydrobromid Hydrobromid t} Hydrobromi e 20 MG e 20 MG de 20 MG Cozaar 100 Cozaar 100 No 1{table QD Cozaar 100 MG MG t} MG Famotidine Famotidine No 1{table BID Famotidine 40 MG 40 MG t_as_ne 40 MG eded} Levothyroxi Levothyroxi No QD Levothyrox ne Sodium ne Sodium ine Sodium 75 MCG 75 MCG 75 MCG Lipitor 20 Lipitor 20 No 1{table QD Lipitor 20 MG MG t} MG Nitrostat Nitrostat No Nitrostat 0.4 MG 0.4 MG 0.4 MG ZyrTEC ZyrTEC No 1{table QD ZyrTEC Allergy 10 Allergy 10 t} Allergy 10 MG MG MG Ventolin Ventolin No 2{puffs QID Ventolin HFA 108 (90 HFA 108 (90 _as_nee HFA 108 Base) Base) ded} (90 Base) MCG/ACT MCG/ACT MCG/ACT Ranitidine Ranitidine No 1{capsu BID Ranitidine HCl 150 MG HCl 150 MG le} HCl 150 MG [place] No 1{table TID [place] 7.5-325 MG 7.5-325 MG t_as_ne 7.5-325 MG eded} Ferrous Ferrous No 1{table BID Ferrous Sulfate 325 Sulfate 325 t} Sulfate (65 Fe) MG (65 Fe) MG 325 (65 Fe) MG Aspir-81 81 Aspir-81 81 No 1{table QD Aspir-81 MG MG t} 81 MG Ferrous Ferrous No 1{table BID Ferrous Sulfate 325 Sulfate 325 t} Sulfate (65 Fe) MG (65 Fe) MG 325 (65 Fe) MG Norvasc 5 Norvasc 5 No 1{table QD Norvasc 5 MG MG t} MG Citalopram Citalopram No 1{table QD Citalopram Hydrobromid Hydrobromid t} Hydrobromi e 20 MG e 20 MG de 20 MG Cozaar 100 Cozaar 100 No 1{table QD Cozaar 100 MG MG t} MG Famotidine Famotidine No 1{table BID Famotidine 40 MG 40 MG t_as_ne 40 MG eded} Levothyroxi Levothyroxi No QD Levothyrox ne Sodium ne Sodium ine Sodium 75 MCG 75 MCG 75 MCG Lipitor 20 Lipitor 20 No 1{table QD Lipitor 20 MG MG t} MG Nitrostat Nitrostat No Nitrostat 0.4 MG 0.4 MG 0.4 MG ZyrTEC ZyrTEC No 1{table QD ZyrTEC Allergy 10 Allergy 10 t} Allergy 10 MG MG MG Ventolin Ventolin No 2{puffs QID Ventolin HFA 108 (90 HFA 108 (90 _as_nee HFA 108 Base) Base) ded} (90 Base) MCG/ACT MCG/ACT MCG/ACT Ranitidine Ranitidine No 1{capsu BID Ranitidine HCl 150 MG HCl 150 MG le} HCl 150 MG [place] No 1{table TID [place] 7.5-325 MG 7.5-325 MG t_as_ne 7.5-325 MG eded} Ferrous Ferrous No 1{table BID Ferrous Sulfate 325 Sulfate 325 t} Sulfate (65 Fe) MG (65 Fe) MG 325 (65 Fe) MG Aspir-81 81 Aspir-81 81 No 1{table QD Aspir-81 MG MG t} 81 MG Ferrous Ferrous No 1{table BID Ferrous Sulfate 325 Sulfate 325 t} Sulfate (65 Fe) MG (65 Fe) MG 325 (65 Fe) MG Norvasc 5 Norvasc 5 No 1{table QD Norvasc 5 MG MG t} MG ZyrTEC ZyrTEC No 1{table QD ZyrTEC Allergy 10 Allergy 10 t} Allergy 10 MG MG MG Citalopram Citalopram No 1{table QD Citalopram Hydrobromid Hydrobromid t} Hydrobromi e 20 MG e 20 MG de 20 MG Norvasc 5 Norvasc 5 No 1{table QD Norvasc 5 MG MG t} MG Lipitor 20 Lipitor 20 No 1{table QD Lipitor 20 MG MG t} MG Levothyroxi Levothyroxi No QD Levothyrox ne Sodium ne Sodium ine Sodium 75 MCG 75 MCG 75 MCG Ferrous Ferrous No 1{table BID Ferrous Sulfate 325 Sulfate 325 t} Sulfate (65 Fe) MG (65 Fe) MG 325 (65 Fe) MG Nitrostat Nitrostat No Nitrostat 0.4 MG 0.4 MG 0.4 MG [place] No 1{table TID [place] 7.5-325 MG 7.5-325 MG t_as_ne 7.5-325 MG eded} Cozaar 100 Cozaar 100 No 1{table QD Cozaar 100 MG MG t} MG Aspir-81 81 Aspir-81 81 No 1{table QD Aspir-81 MG MG t} 81 MG Ferrous Ferrous No 1{table BID Ferrous Sulfate 325 Sulfate 325 t} Sulfate (65 Fe) MG (65 Fe) MG 325 (65 Fe) MG Ventolin Ventolin No 2{puffs QID Ventolin HFA 108 (90 HFA 108 (90 _as_nee HFA 108 Base) Base) ded} (90 Base) MCG/ACT MCG/ACT MCG/ACT Famotidine Famotidine No 1{table BID Famotidine 40 MG 40 MG t_as_ne 40 MG eded} Ranitidine Ranitidine No 1{capsu BID Ranitidine HCl 150 MG HCl 150 MG le} HCl 150 MG ZyrTEC ZyrTEC No 1{table QD ZyrTEC Allergy 10 Allergy 10 t} Allergy 10 MG MG MG Citalopram Citalopram No 1{table QD Citalopram Hydrobromid Hydrobromid t} Hydrobromi e 20 MG e 20 MG de 20 MG Norvasc 5 Norvasc 5 No 1{table QD Norvasc 5 MG MG t} MG Lipitor 20 Lipitor 20 No 1{table QD Lipitor 20 MG MG t} MG Levothyroxi Levothyroxi No QD Levothyrox ne Sodium ne Sodium ine Sodium 75 MCG 75 MCG 75 MCG Ferrous Ferrous No 1{table BID Ferrous Sulfate 325 Sulfate 325 t} Sulfate (65 Fe) MG (65 Fe) MG 325 (65 Fe) MG Nitrostat Nitrostat No Nitrostat 0.4 MG 0.4 MG 0.4 MG [place] No 1{table TID [place] 7.5-325 MG 7.5-325 MG t_as_ne 7.5-325 MG eded} Cozaar 100 Cozaar 100 No 1{table QD Cozaar 100 MG MG t} MG Aspir-81 81 Aspir-81 81 No 1{table QD Aspir-81 MG MG t} 81 MG Ferrous Ferrous No 1{table BID Ferrous Sulfate 325 Sulfate 325 t} Sulfate (65 Fe) MG (65 Fe) MG 325 (65 Fe) MG Ventolin Ventolin No 2{puffs QID Ventolin HFA 108 (90 HFA 108 (90 _as_nee HFA 108 Base) Base) ded} (90 Base) MCG/ACT MCG/ACT MCG/ACT Famotidine Famotidine No 1{table BID Famotidine 40 MG 40 MG t_as_ne 40 MG eded} Ranitidine Ranitidine No 1{capsu BID Ranitidine HCl 150 MG HCl 150 MG le} HCl 150 MG ZyrTEC ZyrTEC No 1{table QD ZyrTEC Allergy 10 Allergy 10 t} Allergy 10 MG MG MG Citalopram Citalopram No 1{table QD Citalopram Hydrobromid Hydrobromid t} Hydrobromi e 20 MG e 20 MG de 20 MG Norvasc 5 Norvasc 5 No 1{table QD Norvasc 5 MG MG t} MG Lipitor 20 Lipitor 20 No 1{table QD Lipitor 20 MG MG t} MG Levothyroxi Levothyroxi No QD Levothyrox ne Sodium ne Sodium ine Sodium 75 MCG 75 MCG 75 MCG Ferrous Ferrous No 1{table BID Ferrous Sulfate 325 Sulfate 325 t} Sulfate (65 Fe) MG (65 Fe) MG 325 (65 Fe) MG Nitrostat Nitrostat No Nitrostat 0.4 MG 0.4 MG 0.4 MG [place] No 1{table TID [place] 7.5-325 MG 7.5-325 MG t_as_ne 7.5-325 MG eded} Cozaar 100 Cozaar 100 No 1{table QD Cozaar 100 MG MG t} MG Aspir-81 81 Aspir-81 81 No 1{table QD Aspir-81 MG MG t} 81 MG Ferrous Ferrous No 1{table BID Ferrous Sulfate 325 Sulfate 325 t} Sulfate (65 Fe) MG (65 Fe) MG 325 (65 Fe) MG Ventolin Ventolin No 2{puffs QID Ventolin HFA 108 (90 HFA 108 (90 _as_nee HFA 108 Base) Base) ded} (90 Base) MCG/ACT MCG/ACT MCG/ACT Famotidine Famotidine No 1{table BID Famotidine 40 MG 40 MG t_as_ne 40 MG eded} Ranitidine Ranitidine No 1{capsu BID Ranitidine HCl 150 MG HCl 150 MG le} HCl 150 MG ZyrTEC ZyrTEC No 1{table QD ZyrTEC Allergy 10 Allergy 10 t} Allergy 10 MG MG MG Citalopram Citalopram No 1{table QD Citalopram Hydrobromid Hydrobromid t} Hydrobromi e 20 MG e 20 MG de 20 MG Norvasc 5 Norvasc 5 No 1{table QD Norvasc 5 MG MG t} MG Lipitor 20 Lipitor 20 No 1{table QD Lipitor 20 MG MG t} MG Levothyroxi Levothyroxi No QD Levothyrox ne Sodium ne Sodium ine Sodium 75 MCG 75 MCG 75 MCG Ferrous Ferrous No 1{table BID Ferrous Sulfate 325 Sulfate 325 t} Sulfate (65 Fe) MG (65 Fe) MG 325 (65 Fe) MG Nitrostat Nitrostat No Nitrostat 0.4 MG 0.4 MG 0.4 MG [place] No 1{table TID [place] 7.5-325 MG 7.5-325 MG t_as_ne 7.5-325 MG eded} Cozaar 100 Cozaar 100 No 1{table QD Cozaar 100 MG MG t} MG Aspir-81 81 Aspir-81 81 No 1{table QD Aspir-81 MG MG t} 81 MG Ferrous Ferrous No 1{table BID Ferrous Sulfate 325 Sulfate 325 t} Sulfate (65 Fe) MG (65 Fe) MG 325 (65 Fe) MG Ventolin Ventolin No 2{puffs QID Ventolin HFA 108 (90 HFA 108 (90 _as_nee HFA 108 Base) Base) ded} (90 Base) MCG/ACT MCG/ACT MCG/ACT Famotidine Famotidine No 1{table BID Famotidine 40 MG 40 MG t_as_ne 40 MG eded} Ranitidine Ranitidine No 1{capsu BID Ranitidine HCl 150 MG HCl 150 MG le} HCl 150 MG Aspir-81 81 Aspir-81 81 No 1{table QD Aspir-81 MG MG t} 81 MG [place] No 1{table TID [place] 7.5-325 MG 7.5-325 MG t_as_ne 7.5-325 MG eded} Ranitidine Ranitidine No 1{capsu BID Ranitidine HCl 150 MG HCl 150 MG le} HCl 150 MG Ventolin Ventolin No 2{puffs QID Ventolin HFA 108 (90 HFA 108 (90 _as_nee HFA 108 Base) Base) ded} (90 Base) MCG/ACT MCG/ACT MCG/ACT Lyrica 200 Lyrica 200 No 1{capsu BID Lyrica 200 MG MG le} MG Norvasc 5 Norvasc 5 No 1{table QD Norvasc 5 MG MG t} MG Cozaar 100 Cozaar 100 No 1{table QD Cozaar 100 MG MG t} MG Levothyroxi Levothyroxi No QD Levothyrox ne Sodium ne Sodium ine Sodium 75 MCG 75 MCG 75 MCG Famotidine Famotidine No 1{table BID Famotidine 40 MG 40 MG t_as_ne 40 MG eded} Ferrous Ferrous No 1{table BID Ferrous Sulfate 325 Sulfate 325 t} Sulfate (65 Fe) MG (65 Fe) MG 325 (65 Fe) MG ZyrTEC ZyrTEC No 1{table QD ZyrTEC Allergy 10 Allergy 10 t} Allergy 10 MG MG MG Ferrous Ferrous No 1{table BID Ferrous Sulfate 325 Sulfate 325 t} Sulfate (65 Fe) MG (65 Fe) MG 325 (65 Fe) MG Lipitor 20 Lipitor 20 No 1{table QD Lipitor 20 MG MG t} MG Citalopram Citalopram No 1{table QD Citalopram Hydrobromid Hydrobromid t} Hydrobromi e 20 MG e 20 MG de 20 MG Nitrostat Nitrostat No Nitrostat 0.4 MG 0.4 MG 0.4 MG Aspir-81 81 Aspir-81 81 No 1{table QD Aspir-81 MG MG t} 81 MG [place] No 1{table TID [place] 7.5-325 MG 7.5-325 MG t_as_ne 7.5-325 MG eded} Ranitidine Ranitidine No 1{capsu BID Ranitidine HCl 150 MG HCl 150 MG le} HCl 150 MG Ventolin Ventolin No 2{puffs QID Ventolin HFA 108 (90 HFA 108 (90 _as_nee HFA 108 Base) Base) ded} (90 Base) MCG/ACT MCG/ACT MCG/ACT Lyrica 200 Lyrica 200 No 1{capsu BID Lyrica 200 MG MG le} MG Norvasc 5 Norvasc 5 No 1{table QD Norvasc 5 MG MG t} MG Cozaar 100 Cozaar 100 No 1{table QD Cozaar 100 MG MG t} MG Levothyroxi Levothyroxi No QD Levothyrox ne Sodium ne Sodium ine Sodium 75 MCG 75 MCG 75 MCG Famotidine Famotidine No 1{table BID Famotidine 40 MG 40 MG t_as_ne 40 MG eded} Ferrous Ferrous No 1{table BID Ferrous Sulfate 325 Sulfate 325 t} Sulfate (65 Fe) MG (65 Fe) MG 325 (65 Fe) MG ZyrTEC ZyrTEC No 1{table QD ZyrTEC Allergy 10 Allergy 10 t} Allergy 10 MG MG MG Ferrous Ferrous No 1{table BID Ferrous Sulfate 325 Sulfate 325 t} Sulfate (65 Fe) MG (65 Fe) MG 325 (65 Fe) MG Lipitor 20 Lipitor 20 No 1{table QD Lipitor 20 MG MG t} MG Citalopram Citalopram No 1{table QD Citalopram Hydrobromid Hydrobromid t} Hydrobromi e 20 MG e 20 MG de 20 MG Nitrostat Nitrostat No Nitrostat 0.4 MG 0.4 MG 0.4 MG [place] No 1{table TID [place] 7.5-325 MG 7.5-325 MG t_as_ne 7.5-325 MG eded} Lipitor 20 Lipitor 20 No 1{table QD Lipitor 20 MG MG t} MG ZyrTEC ZyrTEC No 1{table QD ZyrTEC Allergy 10 Allergy 10 t} Allergy 10 MG MG MG Ranitidine Ranitidine No 1{capsu BID Ranitidine HCl 150 MG HCl 150 MG le} HCl 150 MG Ferrous Ferrous No 1{table BID Ferrous Sulfate 325 Sulfate 325 t} Sulfate (65 Fe) MG (65 Fe) MG 325 (65 Fe) MG Citalopram Citalopram No 1{table QD Citalopram Hydrobromid Hydrobromid t} Hydrobromi e 20 MG e 20 MG de 20 MG Ventolin Ventolin No 2{puffs QID Ventolin HFA 108 (90 HFA 108 (90 _as_nee HFA 108 Base) Base) ded} (90 Base) MCG/ACT MCG/ACT MCG/ACT Ferrous Ferrous No 1{table BID Ferrous Sulfate 325 Sulfate 325 t} Sulfate (65 Fe) MG (65 Fe) MG 325 (65 Fe) MG Aspir-81 81 Aspir-81 81 No 1{table QD Aspir-81 MG MG t} 81 MG Famotidine Famotidine No Famotidine 40 MG 40 MG 40 MG Norvasc 5 Norvasc 5 No 1{table QD Norvasc 5 MG MG t} MG Cozaar 100 Cozaar 100 No 1{table QD Cozaar 100 MG MG t} MG Nitrostat Nitrostat No Nitrostat 0.4 MG 0.4 MG 0.4 MG Levothyroxi Levothyroxi No QD Levothyrox ne Sodium ne Sodium ine Sodium 75 MCG 75 MCG 75 MCG Ranitidine Ranitidine No 1{capsu BID Ranitidine HCl 150 MG HCl 150 MG le} HCl 150 MG [place] No 1{table TID [place] 7.5-325 MG 7.5-325 MG t_as_ne 7.5-325 MG eded} Nitrostat Nitrostat No Nitrostat 0.4 MG 0.4 MG 0.4 MG Aspir-81 81 Aspir-81 81 No 1{table QD Aspir-81 MG MG t} 81 MG Norvasc 5 Norvasc 5 No 1{table QD Norvasc 5 MG MG t} MG Levothyroxi Levothyroxi No QD Levothyrox ne Sodium ne Sodium ine Sodium 75 MCG 75 MCG 75 MCG Ferrous Ferrous No 1{table BID Ferrous Sulfate 325 Sulfate 325 t} Sulfate (65 Fe) MG (65 Fe) MG 325 (65 Fe) MG Famotidine Famotidine No Famotidine 40 MG 40 MG 40 MG Ferrous Ferrous No 1{table BID Ferrous Sulfate 325 Sulfate 325 t} Sulfate (65 Fe) MG (65 Fe) MG 325 (65 Fe) MG Citalopram Citalopram No 1{table QD Citalopram Hydrobromid Hydrobromid t} Hydrobromi e 20 MG e 20 MG de 20 MG Famotidine Famotidine No 1{table BID Famotidine 40 MG 40 MG t_as_ne 40 MG eded} Ventolin Ventolin No 2{puffs QID Ventolin HFA 108 (90 HFA 108 (90 _as_nee HFA 108 Base) Base) ded} (90 Base) MCG/ACT MCG/ACT MCG/ACT Cozaar 100 Cozaar 100 No 1{table QD Cozaar 100 MG MG t} MG Lipitor 20 Lipitor 20 No 1{table QD Lipitor 20 MG MG t} MG Lipitor 20 Lipitor 20 No 1{table QD Lipitor 20 MG MG t} MG Nitrostat Nitrostat No Nitrostat 0.4 MG 0.4 MG 0.4 MG [place] No 1{table TID [place] 7.5-325 MG 7.5-325 MG t_as_ne 7.5-325 MG eded} Levothyroxi Levothyroxi No QD Levothyrox ne Sodium ne Sodium ine Sodium 75 MCG 75 MCG 75 MCG Ventolin Ventolin No 2{puffs QID Ventolin HFA 108 (90 HFA 108 (90 _as_nee HFA 108 Base) Base) ded} (90 Base) MCG/ACT MCG/ACT MCG/ACT Famotidine Famotidine No 1{table BID Famotidine 40 MG 40 MG t_as_ne 40 MG eded} Ranitidine Ranitidine No 1{capsu BID Ranitidine HCl 150 MG HCl 150 MG le} HCl 150 MG Aspir-81 81 Aspir-81 81 No 1{table QD Aspir-81 MG MG t} 81 MG Citalopram Citalopram No 1{table QD Citalopram Hydrobromid Hydrobromid t} Hydrobromi e 20 MG e 20 MG de 20 MG Ferrous Ferrous No 1{table BID Ferrous Sulfate 325 Sulfate 325 t} Sulfate (65 Fe) MG (65 Fe) MG 325 (65 Fe) MG ZyrTEC ZyrTEC No 1{table QD ZyrTEC Allergy 10 Allergy 10 t} Allergy 10 MG MG MG Lyrica 200 Lyrica 200 No 1{capsu BID Lyrica 200 MG MG le} MG Norvasc 5 Norvasc 5 No 1{table QD Norvasc 5 MG MG t} MG Ferrous Ferrous No 1{table BID Ferrous Sulfate 325 Sulfate 325 t} Sulfate (65 Fe) MG (65 Fe) MG 325 (65 Fe) MG Cozaar 100 Cozaar 100 No 1{table QD Cozaar 100 MG MG t} MG ZyrTEC ZyrTEC 2022- No 1{table QD ZyrTEC Allergy 10 Allergy 10 05-29 t} Allergy 10 MG MG 00:00 MG :00 Immunizations Ordered Immunization Filled Immunization Date Status Commen ts Source Name Name Prevnar 20 (PCV20) Prevnar 20 (PCV20) 2021-11-03 [facility] Prevnar 20 (PCV20) Prevnar 20 (PCV20) 2021-11-03 [facility]:09[facility] - [facility] Prevnar 20 (PCV20) Prevnar 20 (PCV20) 2021-11-03 [facility]:09[facility] - [facility] Prevnar 20 (PCV20) Prevnar 20 (PCV20) 2021-11-03 [facility]:09:[facility] - [facility] Twinrix Twinrix 2021-11-03 [facility]pleted [facility] 15:07:00 - [facility] Twinrix Twinrix 2021-11-03 [facility] 15:07:00 - [facility] Twinrix Twinrix 2021-11-03 [facility] 15:07:00 - [facility] Twinrix Twinrix 2021-11-03 [facility] 15:07:00 - [facility] FLUZONE HIGH DOSE FLUZONE HIGH DOSE 2020-12-29 [facility]pleted [facility] OVER 65 OVER 65 09:59:00 - [facility] FLUZONE HIGH DOSE FLUZONE HIGH DOSE 2020-12-29 [facility]pleted [facility] OVER 65 OVER 65 09:59:00 - [facility] FLUZONE HIGH DOSE FLUZONE HIGH DOSE 2020-12-29 [facility]pleted [facility] OVER 65 OVER 65 09:59:00 - [facility] FLUZONE HIGH DOSE FLUZONE HIGH DOSE 2020-12-29 [facility]pleted [facility] OVER 65 OVER 65 09:59:00 - [facility] FLUZONE HIGH DOSE FLUZONE HIGH DOSE 2020-12-29 [facility]pleted [facility] OVER 65 OVER 65 09:59:00 - [facility] FLUZONE HIGH DOSE FLUZONE HIGH DOSE 2020-12-29 [facility]pleted [facility] OVER 65 OVER 65 09:59:00 - [facility] FLUZONE HIGH DOSE FLUZONE HIGH DOSE 2020-12-29 [facility]pleted [facility] OVER 65 OVER 65 09:59:00 - [facility] FLUZONE HIGH DOSE FLUZONE HIGH DOSE 2020-12-29 [facility]pleted [facility] OVER 65 OVER 65 09:59:00 - [facility] FLUZONE HIGH DOSE FLUZONE HIGH DOSE 2020-12-29 [facility]pleted [facility] OVER 65 OVER 65 09:59:00 - [facility] FLUZONE HIGH DOSE FLUZONE HIGH DOSE 2020-12-29 [facility]pleted [facility] OVER 65 OVER 65 09:59:00 - [facility] FLUZONE HIGH DOSE FLUZONE HIGH DOSE 2020-12-29 Completed [facility] OVER 65 OVER 65 09:59:00 - [facility] FLUZONE HIGH DOSE FLUZONE HIGH DOSE 2020-12-29 Completed [facility] OVER 65 OVER 65 09:59:00 - [facility] FLUZONE HIGH DOSE FLUZONE HIGH DOSE 2020-12-29 Completed [facility] OVER 65 OVER 65 09:59:00 - [facility] FLUZONE HIGH DOSE FLUZONE HIGH DOSE 2020-12-29 [facility]pleted [facility] OVER 65 OVER 65 09:59:00 - [facility] Moderna COVID-19 Moderna COVID-19 2020-07-11 [facility]pleted [facility] Vaccine 09:41:00 [facility] Moderna COVID-19 Moderna COVID-19 2020-07-11 Completed [facility] Vaccine Vaccine 09:41:00 [facility] Moderna COVID-19 Moderna COVID-19 2020-07-11 Completed [facility]ine Vaccine 09:41:00 - [facility] Moderna COVID-19 Moderna COVID-19 2020-07-11 Completed [facility] Vaccine 09:41:00 - [facility] Moderna COVID-19 Moderna COVID-19 2020-07-11 Completed [facility] Vaccine Vaccine 09:41:00 - [facility] Moderna COVID-19 Moderna COVID-19 2020-07-11 Completed [facility] Vaccine Vaccine 09:41:00 - [facility] Moderna COVID-19 Moderna COVID-19 2020-07-11 Completed [facility] Vaccine Vaccine 09:41:00 - [facility] Moderna COVID-19 Moderna COVID-19 2020-07-11 Completed [facility]ine Vaccine 09:41:00 - [facility] Moderna COVID-19 Moderna COVID-19 2020-07-11 Completed [facility] Vaccine 09:41:00 - [facility] Moderna COVID-19 Moderna COVID-19 2020-07-11 Completed [facility] Vaccine Vaccine 09:41:00 - [facility] Moderna COVID-19 Moderna COVID-19 2020-07-11 Completed [facility] Vaccine Vaccine 09:41:00 - [facility] Moderna COVID-19 Moderna COVID-19 2020-07-11 Completed [facility] Vaccine Vaccine 09:41:00 - [facility] Moderna COVID-19 Moderna COVID-19 2020-07-11 Completed [facility] Vaccine Vaccine 09:41:00 - [facility] Moderna COVID-19 Moderna COVID-19 2020-07-11 Completed [facility] Vaccine Vaccine 09:41:00 - [facility] Moderna COVID-19 Moderna COVID-19 2020-06-23 Completed [facility] Vaccine Vaccine 09:41:00 - [facility] Moderna COVID-19 Moderna COVID-19 2020-06-23 Completed [facility] Vaccine Vaccine 09:41:00 - [facility] Moderna COVID-19 Moderna COVID-19 2020-06-23 Completed [facility] Vaccine Vaccine 09:41:00 - [facility] Moderna COVID-19 Moderna COVID-19 2020-06-23 Completed [facility] Vaccine Vaccine 09:41:00 - [facility] Moderna COVID-19 Moderna COVID-19 2020-06-23 Completed [facility] Vaccine Vaccine 09:41:00 - [facility] Moderna COVID-19 Moderna COVID-19 2020-06-23 Completed [facility] Vaccine Vaccine 09:41:00 - [facility] Moderna COVID-19 Moderna COVID-19 2020-06-23 Completed [facility] Vaccine Vaccine 09:41:00 - [facility] Moderna COVID-19 Moderna COVID-19 2020-06-23 Completed [facility] Vaccine Vaccine 09:41:00 - [facility] Moderna COVID-19 Moderna COVID-19 2020-06-23 Completed [facility] Vaccine Vaccine 09:41:00 - [facility] Moderna COVID-19 Moderna COVID-19 2020-06-23 Completed [facility]ine Vaccine 09:41:00 - [facility] Moderna COVID-19 Moderna COVID-19 2020-06-23 Completed [facility] Vaccine Vaccine 09:41:00 - [facility] Moderna COVID-19 Moderna COVID-19 2020-06-23 Completed [facility] Vaccine Vaccine 09:41:00 - [facility] Moderna COVID-19 Moderna COVID-19 2020-06-23 Completed [facility] Vaccine Vaccine 09:41:00 - [facility] Moderna COVID-19 Moderna COVID-19 2020-06-23 Completed [facility] Vaccine Vaccine 09:41:00 - [facility] FluAD FluAD 2019-12-21 [facility] 09:16:00 [facility] FluAD FluAD 2019-12-21 [facility]pleted [facility] 09:16:00 [facility] FluAD FluAD 2019-12-21 [facility]pleted [facility] 09:16:00 [facility] FluAD FluAD 2019-12-21 [facility]pleted [facility] 09:16:00 [facility] FluAD FluAD 2019-12-21 [facility]pleted [facility] 09:16:00 [facility] FluAD FluAD 2019-12-21 [facility]pleted [facility] 09:16:00 - [facility] FluAD FluAD 2019-12-21 Completed [facility] 09:16:00 - [facility] FluAD FluAD 2019-12-21 Completed [facility] 09:16:00 - [facility] FluAD FluAD 2019-12-21 [facility]pleted [facility] 09:16:00 - [facility] FluAD FluAD 2019-12-21 [facility] 09:16:00 - [facility] FluAD FluAD 2019-12-21 [facility] 09:16:00 - [facility] FluAD FluAD 2019-12-21 [facility]pleted [facility] 09:16:00 - [facility] FluAD FluAD 2019-12-21 [facility]pleted [facility] 09:16:00 - [facility] FluAD FluAD 2019-12-21 Completed [facility] 09:16:00 - [facility] Vital Signs Vital Name Observation Time Observation Value Comments Source height 2022-02-03 08:40:00 66.0 [in_i] [facility] weight 2022-02-03 08:40:00 170 [lb_av] [facility] bmi 2022-02-03 08:40:00 27.44 kg/m2 [facility] height 2022-01-07 09:00:00 66.0 [in_i] [facility] weight 2022-01-07 09:00:00 175.8 [lb_av] [facility] temperature 2022-01-07 09:00:00 98.0 [degF] [facility] bmi 2022-01-07 09:00:00 28.37 kg/m2 [facility] height 2021-07-17 08:20:00 66.0 [in_i] [facility] weight 2021-07-17 08:20:00 175.8 [lb_av] [facility] temperature 2021-07-17 08:20:00 97.9 [degF] [facility] bmi 2021-07-17 08:20:00 28.37 kg/m2 [facility] oximetry 2021-07-17 08:20:00 95 % [facility] respiratory rate 2021-07-17 08:20:00 17 /min [facility] blood pressure 2021-07-17 08:20:00 129 mm[Hg] [facility] - systolic [facility] blood pressure 2021-07-17 08:20:00 76 mm[Hg] [facility] - diastolic [facility] height 2021-01-16 13:40:00 66.0 [in_i] [facility] weight 2021-01-16 13:40:00 173 [lb_av] [facility] temperature 2021-01-16 13:40:00 97.9 [degF] [facility] bmi 2021-01-16 13:40:00 27.92 kg/m2 [facility] oximetry 2021-01-16 13:40:00 97 % [facility] blood pressure 2021-01-16 13:40:00 132 mm[Hg] Common [facility] - systolic [facility] blood pressure 2021-01-16 13:40:00 75 mm[Hg] [facility] - diastolic [facility] height 2020-12-29 08:20:00 66.0 [in_i] [facility] weight 2020-12-29 08:20:00 172 [lb_av] [facility] temperature 2020-12-29 08:20:00 97.7 [degF] [facility] bmi 2020-12-29 08:20:00 27.76 kg/m2 [facility] oximetry 2020-12-29 08:20:00 95 % Common [facility] respiratory rate 2020-12-29 08:20:00 17 /min [facility] on [facility] blood pressure 2020-12-29 08:20:00 129 mm[Hg] Common [facility] - systolic [facility] blood pressure 2020-12-29 08:20:00 82 mm[Hg] Common [facility] diastolic [facility] height 2020-12-29 10:00:00 66.0 [in_i] [facility] weight 2020-12-29 10:00:00 172.0 [lb_av] [facility] temperature 2020-12-29 10:00:00 97.7 [degF] [facility] bmi 2020-12-29 10:00:00 27.76 kg/m2 [facility] oximetry 2020-12-29 10:00:00 95 % [facility] respiratory rate 2020-12-29 10:00:00 17 /min Comm on [facility] blood pressure 2020-12-29 10:00:00 129 mm[Hg] [facility] systolic [facility] blood pressure 2020-12-29 10:00:00 82 mm[Hg] [facility] diastolic [facility] Procedures This patient has no known procedures. Encounters Start End Encounter Admission Attending Care Care Encounter Source Date/Time Date/Time Type Type Clinicians Facility Department ID 2022-04-12 Outpatient Medeiros, STLMLC STLMLC [id number] [facility] 10:32:00 Mar[place] [id number] [facility] 2022-02-01 Outpatient Tapia, Na STLMLC STLMLC [id number] [facility] 14:14:00 [facility] 2021-11-02 Outpatient Tapia, Na STLMLC STLMLC [id number] [facility] 08:15:00 [facility] 2021-09-22 Outpatient Tapia, Na STLMLC STLMLC [id number] [facility] 11:11:00 [facility] 2021-07-15 Outpatient Tapia, Na STLMLC STLMLC [id number] [facility] 13:05:00 [facility] 2021-04-01 Outpatient Tapia, Na STLMLC STLMLC [id number] [facility] 14:16:50 [id number] [facility] 2021-04-01 Outpatient Tapia, Na STLMLC STLMLC [id number] [facility] 14:12:03 [id number] [facility] 2021-04-01 Outpatient Tapia, Na STLMLC STLMLC [id number] [facility] 14:04:53 [id number] [facility] 2021-04-01 Outpatient Tapia, Na STLMLC STLMLC [id number] [facility] 12:21:34 [id number] [facility] 2021-04-01 Outpatient Tapia, Na STLMLC STLMLC [id number] [facility] 11:54:57 [id number] [facility] 2021-04-01 Outpatient Tapia, Na STLMLC STLMLC [id number] [facility] 11:19:01 [id number] [facility] 2021-04-01 Outpatient Tapia, Na STLMLC STLMLC [id number] 2 [facility] 11:17:07 [id number] [facility] 2021-04-01 Outpatient Tapia, Na STLMLC STLMLC [id number] 2 [facility] 11:10:12 [id number] [facility] 2021-04-01 Outpatient Tapia, Na STLMLC STLMLC [id number] Common 10:58:07 [id number] [facility] 2022-02-03 2022-02-03 OFFICE STLMLC STLMLC [id number] [facility] 00:00:00 00:00:00 VISIT [facility] PT LEVEL 3 [facility] 2022-01-07 2022-01-07 SUB ANNUAL STLMLC STLMLC [id number] [facility] 00:00:00 00:00:00 MCR [facility] VISIT [facility] 2021-11-11 2021-11-11 (TEL) STLMLC STLMLC [id number] [facility] 00:00:00 00:00:00 [facility] 2021-11-04 2021-11-04 OL DIG E/M STLMLC STLMLC [id number] [facility] 00:00:00 00:00:00 SVC 21+ [facility] MIN [facility] 2021-08-24 2021-08-24 (TEL) STLMLC STLMLC [id number] [facility] 00:00:00 00:00:00 [facility] 2021-08-24 2021-08-24 (TEL) STLMLC STLMLC [id number] [facility] 00:00:00 00:00:00 [facility] 2021-07-23 2021-07-23 (TEL) STLMLC STLMLC [id number] [facility] 00:00:00 00:00:00 [facility] 2021-07-17 2021-07-17 OFFICE STLMLC STLMLC [id number] [facility] 00:00:00 00:00:00 VISIT [facility] ESTAB PT - [facility]I LEVEL 4 [facility] 2021-04-10 2021-04-10 (TEL) STLMLC STLMLC [id number] [facility] 00:00:00 00:00:00 [facility] 2021-04-09 2021-04-09 OFFICE STLMLC STLMLC [id number] [facility] 00:00:00 00:00:00 [facility] ESTAB PT - [facility] LEVEL 4 [facility] 2021-01-16 2021-01-16 OFFICE STLMLC STLMLC [id number] [facility] 00:00:00 00:00:00 VISIT [facility] PT LEVEL 3 - [facility] 2020-12-29 2020-12-29 OFFICE STLMLC STLMLC [id number] [facility] 00:00:00 00:00:00 [facility] ESTAB PT - [facility] LEVEL 4 [facility] 2020-12-29 2020-12-29 SUB ANNUAL STLMLC STLMLC [id number] [facility] 00:00:00 00:00:00 [facility] WELLNESS - [facility] VISIT [facility] 2020-12-29 2020-12-29 (TEL) STLMLC STLMLC [id number] [facility] 00:00:00 00:00:00 [facility] 2020-09-25 2020-09-25 Outpatient STLMLC STLMLC [id number] [facility] 00:00:00 00:00:00 [facility] 2020-06-24 2020-06-24 Outpatient STLMLC STLMLC [id number] [facility] 00:00:00 00:00:00 [facility] 2020-04-29 2020-04-29 Outpatient STLMLC STLMLC [id number] [facility] 00:00:00 00:00:00 [facility] 2020-04-26 2020-04-26 Outpatient STLMLC STLMLC [id number] [facility] 00:00:00 00:00:00 [facility] 2020-03-25 2020-03-25 Outpatient STLMLC STLMLC [id number] [facility] 00:00:00 00:00:00 [facility] 2019-12-21 2019-12-21 Outpatient STLMLC STLMLC [id number] [facility] 00:00:00 00:00:00 [facility] 2019-11-29 2019-11-29 Outpatient STLMLC STLMLC [id number] [facility] 00:00:00 00:00:00 [facility] 2019-09-14 2019-09-14 [facility] [id number] [facility] 13:00:00 13:00:00 t [facility] [address] [facility] 2019-09-13 2019-09-13 [facility] [id number] [facility] 08:00:00 08:00:[address] [facility] 2019-06-28 2019-06-28 [facility] [id number] [facility] 13:30:00 13:30:00 t Specialty/U Sp bang Specialty rology - [facility] /[facility] 2019-06-13 2019-06-13 [facility] [id number] [facility] 08:00:00 08:00:[address] [facility] 2019-04-10 2019-04-10 [facility] [id number] [facility] 14:35:00 14:35:[address] [facility] 2019-04-02 2019-04-02 [facility] [id number] [facility] 08:00:00 08:00:[address] [facility] 2019-03-14 2019-03-14 [facility] [id number] [facility] 08:00:00 08:00:[address] [facility] 2019-03-08 2019-03-08 [facility] [id number] [facility] 09:01:00 09:01:[address] [facility] 2019-02-20 2019-02-20 [facility] [id number] [facility] 17:02:00 17:02:[address] [facility] 2019-02-07 2019-02-07 [facility] [id number] [facility] 16:26:00 16:26:[address] [facility] 2018-12-08 2018-12-08 [facility] [id number] [facility] 08:20:00 08:20:[address] [facility] 2018-08-30 2018-08-30 [facility] [id number] [facility] 08:00:00 08:00:[address] [facility] 2018-05-25 2018-05-25 [facility] [id number] [facility] 09:00:00 09:00:[address] [facility] 2018-02-23 2018-02-23 [facility] [id number] [facility] 11:15:00 11:15:[address] [facility] 2017-12-09 2017-12-09 [facility] [id number] [facility] 08:42:00 08:42:[address] [facility] 2017-11-24 2017-11-24 [facility] [id number] [facility] 11:00:00 11:00:[address] [facility] 2017-08-26 2017-08-26 [facility] [id number] [facility] 08:15:00 08:15:[address] [facility] Results This patient has no known results.
[2022-09-20] MEDS ORDERED: NA CHLORIDE 0.9% 1,000 ML ONE (15:37)
[2022-09-20 15:51] LABS: Absolute Lymphocytes (CBC) 1.7 K/uL (0.7-4.9); Hematocrit 34.2 % (39.6-49.0); Lymphocytes % 24.8 % (15.3-44.8); MCV 95.4 fL (80-100); MPV 7.4 fL (7.6-11.3); RBC Red Blood Cell Count 3.58 M/uL (4.33-5.43)
[2022-09-20 16:24] LABS: Albumin 3.2 g/dL (3.4-5.0); Bilirubin Direct 0.1 mg/dL (0-0.2); Bilirubin Indirect, Calculated 0.5 mg/dL (0.2-0.8); Bilirubin Total 0.6 mg/dL (0.2-1.0); Potassium 3.6 mEq/L (3.5-5.1); Protein, Total 6.5 g/dL (6.4-8.2)
--- NOTE | 2022-09-20 17:20 | RAD REPORT ---
EXAM DESCRIPTION: Davida Single View09/20/2022 4:56 pm CLINICAL HISTORY: Chest pain COMPARISON: 2016 FINDINGS: The lungs appear clear of acute infiltrate. The heart is normal size IMPRESSION: No acute abnormalities displayed
--- NOTE | 2022-09-20 17:20 | RAD REPORT ---
EXAM DESCRIPTION: CT - Head C Spine Cap Wo Con - 09/20/2022 5:01 pm CLINICAL HISTORY: Head and neck injury with chest and abdominal pain status post fall TECHNIQUE: Computed axial tomography of head, neck, chest, abdomen and pelvis obtained. IV and oral contrast not requested. Coronal and sagittal reconstruction performed. All CT scans are performed using dose optimization technique as appropriate and may include automated exposure control or mA/KV adjustment according to patient size. COMPARISON: CT chest and abdomen 2016 FINDINGS: An intracranial bleed is not seen. The ventricles are normal in caliber. An extra-axial fluid collection is not noted. Fluid within the sinuses/mastoids is not seen. A cervical fracture is not seen. No dislocation is noted. The evaluation of mediastinum, antione, vessels, solid organs and bowel are limited secondary to the lac k of contrast administration. A mediastinal hematoma is not noted. A pleural effusion is not seen. A lung contusion is not present. The liver,spleen, pancreas, adrenals,kidneys and bladder do not demonstrate an acute traumatic injury Renal cysts. Post surgical changes involve the lumbar spine. Bilateral inguinal hernias contain fat IMPRESSION: No acute intracranial abnormality is seen. A cervical fracture is not visualized. If the patient continues to have symptoms to suggest intracran ial/spinal cord pathology MRI be recommended No acute traumatic abnormality involving the chest, abdomen or pelvis
--- NOTE | 2022-09-20 17:37 | ER ---
Nurse's Notes [facility] Name: Herb Pearce Age: 72 yrs Sex: Male : 1950 Arrival Date: 09/20/2022 Time: 14:34 Bed 12 Private MD: Diagnosis: Fall on same level, unspecified;Strain of muscle and tendon of back wall of thorax;Low back pain;Unspecified kidney failure Presentation: 09/20 14:47 Chief complaint: Patient states: "Yesterday, I fell on my right side of ribs and it mb9 hurts to breathe now." Pt denies LOC or taking blood thinners. Coronavirus screen: Vaccine status: Patient reports receiving the 2nd dose of the covid vaccine. Ebola Screen: No symptoms or risks identified at this time. Initial Sepsis Screen: Does the patient meet any 2 criteria? No. Patient's initial sepsis screen is negative. Does the patient have a suspected source of infection? No. Patient's initial sepsis screen is negative. Risk Assessment: Do you want to hurt yourself or someone else? Patient reports no desire to harm self or others. Onset of symptoms. 14:47 Method Of Arrival: Ambulatory mb9 14:47 Acuity: FRIDA 3 eh3 Triage Assessment: 14:49 General: Appears in no apparent distress. Behavior is calm, cooperative. Pain: mb9 Complains of pain in right ribs Pain does not radiate. Quality of pain is described as throbbing, Pain began suddenly, Aggravated by increased activity, repositioning. Neuro: Woodruff Agitation-Sedation Scale (RASS): 0 - Alert and Calm Level of Consciousness is awake, alert, obeys commands, Oriented to person, place, time, situation, Appropriate for age. Respiratory: Airway is patent Respiratory effort is even, unlabored, Respiratory pattern is regular, symmetrical. Derm: Skin is pink, warm \\T\\ dry. Musculoskeletal: Range of motion: intact in all extremities. Historical: - Allergies: 14:48 No Known Allergies; mb9 - Home Meds: 14:48 None [Active]; mb9 - PMHx: 14:48 chronic back pain; Hypertension; Hypothyroidism; mb9 - PSHx: 14:48 Back surgery; mb9 - Immunization history:: Adult Immunizations up to date. - Social history:: Smoking status: Patient denies any tobacco usage or history of. Screenin:[facility] ED Fall Risk Assessment (Adult) History of falling in the last 3 months, eh3 including since admission Yes- single mechanical fall (1 pt) Confusion or Disorientation No (0 pts) Intoxicated or Sedated No (0 pts) Impaired Gait Yes (1 pt) Mobility Assist Device Used No (0 pt) Altered Elimination No (0 pt) Score/Fall Risk Level 0 - 2 = Low Risk. Abuse screen: Denies threats or abuse. Denies injuries from another. Nutritional screening: No deficits noted. Tuberculosis screening: No symptoms or risk factors identified. Assessment: 15:00 General: Appears in no apparent distress. uncomfortable, Behavior is calm, cooperative, eh3 appropriate for age. Pain: Complains of pain in right lateral anterior chest. Neuro: Level of Consciousness is awake, alert, obeys commands, Oriented to person, place, time, situation. Cardiovascular: Capillary refill < 3 seconds Patient's skin is warm and dry. Respiratory: Airway is patent Respiratory effort is even, unlabored, Respiratory pattern is regular, symmetrical. GI: Abdomen is round non-distended. Derm: Skin is pink, warm \\T\\ dry. Musculoskeletal: Circulation, motion, and sensation intact. 16:00 Reassessment: Patient appears in no apparent distress at this time. Patient and/or 3 family updated on plan of care and expected duration. Pain level reassessed. Patient is alert, oriented x 3, equal unlabored respirations, skin warm/dry/pink. 17:00 Reassessment: Patient appears in no apparent distress at this time. Patient and/or 3 family updated on plan of care and expected duration. Pain level reassessed. Patient is alert, oriented x 3, equal unlabored respirations, skin warm/dry/pink. 18:00 Reassessment: Patient appears in no apparent distress at this time. Patient and/or 3 family updated on plan of care and expected duration. Pain level reassessed. Patient is alert, oriented x 3, equal unlabored respirations, skin warm/dry/pink. Vital Signs: 14:47 BP 108 / 72; Pulse 92; Resp 18; Temp 98.2; Pulse Ox 97% ; Weight 77.11 kg; Height 5 ft. mb9 7 in. ; 15:00 BP 110 / 78; Pulse 89; Resp 18; Pulse Ox 98% on R/A; eh3 16:00 BP 109 / 75; Pulse 86; Resp 18; Pulse Ox 97% on R/A; eh3 17:00 BP 107 / 67; Pulse 82; Resp 18; Pulse Ox 98% on R/A; eh3 18:00 BP 114 / 65; Pulse 79; Resp 18; Pulse Ox 98% on R/A; eh3 14:47 Body Mass Index 26.63 (77.11 kg, 170.18 cm) mb9 ED Course: 14:38 Patient arrived in ED. im 14:44 Rasta Hughes MD is Attending Physician. trip 14:46 Shira Marie, CINDY is Primary Nurse. eh3 14:48 Triage completed. mb9 14:49 Arm band placed on. mb9 15:00 Patient has correct armband on for positive identification. Bed in low position. Call eh3 light in reach. Side rails up X2. Adult w/ patient. Provided Education on: N/A. Pulse ox on. NIBP on. Door closed. Noise minimized. Warm blanket given. 15:24 Inserted saline lock: 20 gauge in left antecubital area, using aseptic technique. Blood eh3 collected. 16:56 Chest Single View In Process Unspecified. EDMS 17:03 Head C Spine Cap Wo Con In Process Unspecified. EDMS 17:39 Shira Squires MD is Referral Physician. trip 18:13 No provider procedures requiring assistance completed. IV discontinued, intact, eh3 bleeding controlled, No redness/swelling at site. Pressure dressing applied. 18:15 INCENTIVE SPIROMETRY Sent. eh3 18:15 INCENTIVE SPIROMETRY Sent. eh3 Administered Medications: 15:20 Drug: NS 0.9% IV 1000 ml Route: IV; Rate: 1 bolus; Site: left antecubital; eh3 16:30 Follow up: IV Status: Completed infusion; IV Intake: 1000ml eh3 Medication: 18:14 VIS not applicable for this client. eh3 Intake: 16:30 IV: 1000ml; Total: 1000ml. eh3 Outcome: 17:36 Discharge ordered by . trip 18:14 Discharged to home ambulatory, with family. eh3 18:14 Condition: stable 18:14 Discharge instructions given to patient, family, Instructed on discharge instructions, follow up and referral plans. medication usage, Demonstrated understanding of instructions, follow-up care, medications, Prescriptions given X 1. 18:14 Patient left the ED. eh3 Signatures: Dispatcher [employer] EDRasta Jc MD MD cha Hall, Erin RN RN 3 Frances Casron RN RN mb9 Mayela Talamantes Corrections: (The following items were deleted from the chart) 15:49 14:47 Acuity: FRIDA 4 9 [facility]
--- NOTE | 2022-09-20 17:37 | EDPHYS ---
Physician Documentation [facility] Name: Herb Pearce Age: 72 yrs Sex: Male : 1950 Arrival Date: 09/20/2022 Time: 14:34 Bed 12 Private MD: ED Physician Rasta Hughes HPI: 09/20 17:27 This 72 yrs old Male presents to ER via Ambulatory with complaints of Fall trip Injury, Low Back Pain. 17:27 Details of fall: The patient fell from an upright position, while walking. Onset: The trip symptoms/episode began/occurred yesterday. Associated injuries: The patient sustained upper back injury, injury to the low back, pain. Severity of symptoms: At their worst the symptoms were mild, in the emergency department the symptoms. The patient has not experienced similar symptoms in the past. Historical: - Allergies: 14:48 No Known Allergies; mb9 - Home Meds: 14:48 None [Active]; mb9 - PMHx: 14:48 chronic back pain; Hypertension; Hypothyroidism; mb9 - PSHx: 14:48 Back surgery; mb9 - Immunization history:: Adult Immunizations up to date. - Social history:: Smoking status: Patient denies any tobacco usage or history of. ROS: 17:28 Constitutional: Negative for fever, chills, and weight loss, Eyes: Negative for injury, trip pain, redness, and discharge, ENT: Negative for injury, pain, and discharge, Neck: Negative for injury, pain, and swelling, Cardiovascular: Negative for chest pain, palpitations, and edema, Respiratory: Negative for shortness of breath, cough, wheezing, and pleuritic chest pain, Abdomen/GI: Negative for abdominal pain, nausea, vomiting, diarrhea, and constipation, : Negative for injury, bleeding, discharge, and swelling, MS/Extremity: Negative for injury and deformity, Skin: Negative for injury, rash, and discoloration, Neuro: Negative for headache, weakness, numbness, tingling, and seizure, Psych: Negative for depression, anxiety, suicide ideation, homicidal ideation, and hallucinations, Allergy/Immunology: Negative for hives, rash, and allergies, Endocrine: Negative for neck swelling, polydipsia, polyuria, polyphagia, and marked weight changes, Hematologic/Lymphatic: Negative for swollen nodes, abnormal bleeding, and unusual bruising. 17:28 Back: Positive for decreased range of motion, pain at rest, pain with movement, of the left low back, left mid back, right mid back and right low back. Exam: 17:28 Constitutional: This is a well developed, well nourished patient who is awake, alert, trip and in no acute distress. Head/Face: Normocephalic, atraumatic. Eyes: Pupils equal round and reactive to light, extra-ocular motions intact. Lids and lashes normal. Conjunctiva and sclera are non-icteric and not injected. Cornea within normal limits. Periorbital areas with no swelling, redness, or edema. ENT: Nares patent. No nasal discharge, no septal abnormalities noted. Tympanic membranes are normal and external auditory canals are clear. Oropharynx with no redness, swelling, or masses, exudates, or evidence of obstruction, uvula midline. Mucous membranes moist. Neck: Trachea midline, no thyromegaly or masses palpated, and no cervical lymphadenopathy. Supple, full range of motion without nuchal rigidity, or vertebral point tenderness. No Meningismus. Chest/axilla: Normal chest wall appearance and motion. Nontender with no deformity. No lesions are appreciated. Cardiovascular: Regular rate and rhythm with a normal S1 and S2. No gallops, murmurs, or rubs. Normal PMI, no JVD. No pulse deficits. Respiratory: Lungs have equal breath sounds bilaterally, clear to auscultation and percussion. No rales, rhonchi or wheezes noted. No increased work of breathing, no retractions or nasal flaring. Abdomen/GI: Soft, non-tender, with normal bowel sounds. No distension or tympany. No guarding or rebound. No evidence of tenderness throughout. Back: No spinal tenderness. No costovertebral tenderness. Full range of motion. Male : Normal genitalia with no discharge or lesions. Skin: Warm, dry with normal turgor. Normal color with no rashes, no lesions, and no evidence of cellulitis. Neuro: Awake and alert, GCS 15, oriented to person, place, time, and situation. Cranial nerves II-XII grossly intact. Motor strength 5/5 in all extremities. Sensory grossly intact. Cerebellar exam normal. Normal gait. Psych: Awake, alert, with orientation to person, place and time. Behavior, mood, and affect are within normal limits. 17:28 Musculoskeletal/extremity: Extremities: all appear grossly normal, with no appreciated pain with palpation, ROM: no acute changes, intact in all extremities, full active range of motion, full passive range of motion, Circulation is intact in all extremities. Sensation intact. Compartment Syndrome exam of affected extremity: is normal. Joints: All joints appear normal with full range of motion. DVT Exam: No signs of deep vein thrombosis. no pain, no swelling, no tenderness, negative Homans' sign noted on exam, no appreciated bluish discoloration, no erythema, no increased warmth. Vital Signs: 14:47 BP 108 / 72; Pulse 92; Resp 18; Temp 98.2; Pulse Ox 97% ; Weight 77.11 kg; Height 5 ft. mb9 7 in. ; 15:00 BP 110 / 78; Pulse 89; Resp 18; Pulse Ox 98% on R/A; eh3 16:00 BP 109 / 75; Pulse 86; Resp 18; Pulse Ox 97% on R/A; eh3 17:00 BP 107 / 67; Pulse 82; Resp 18; Pulse Ox 98% on R/A; eh3 18:00 BP 114 / 65; Pulse 79; Resp 18; Pulse Ox 98% on R/A; eh3 14:47 Body Mass Index 26.63 (77.11 kg, 170.18 cm) mb9 MDM: 14:45 Patient medically screened. trip 17:28 Differential diagnosis: chronic back pain, Fatigue Fracture Ligament Injury Obesity trip Pyelonephritis ruptured disc, sprain, Ureterolithiasis. Differential Diagnosis altered mental status. Differential diagnosis: abrasion, closed head injury, contusion, fracture, laceration, multiple trauma, sprain, strain. Data reviewed: vital signs, nurses notes, lab test result(s), radiologic studies. Consideration of Admission/Observation Escalation of care including admission/observation considered. I considered the following discharge prescriptions or medication management in the emergency department Medications were administered in the Emergency Department. See MAR. Test considered but Not performed: Labs: ct with contrast. Historians other than the Patient: Spouse/Significant Other: , well informed. Care significantly affected by the following chronic conditions: Hypertension, Obesity, cbp, hypothyroid. Counseling: I had a detailed discussion with the patient and/or guardian regarding: the historical points, exam findings, and any diagnostic results supporting the discharge/admit diagnosis, lab results, radiology results, the need for outpatient follow up, for definitive care, a family practitioner. 09/20 14:59 Order name: Type And Screen [facility] 09/20 17:07 Order name: Urinalysis w/ reflexes [facility] 09/20 17:59 Order name: Type and Screen [facility] 09/20 14:59 Order name: INCENTIVE SPIROMETRY [facility] 09/20 16:44 Order name: Head C Spine Cap Wo Con; Complete Time: 17:23 [facility] 09/20 16:56 Order name: Chest Single View; Complete Time: 17:23 [facility] 09/20 17:23 Order name: INCENTIVE SPIROMETRY [facility] 09/20 14:59 Order name: Labs collected and sent; Complete Time: 15:24 [facility] 09/20 15:34 Order name: Labs - recollect needed: recollect type and screen; Complete Time: 15:52 bd Administered Medications: 15:20 Drug: NS 0.9% IV 1000 ml Route: IV; Rate: 1 bolus; Site: left antecubital; eh3 16:30 Follow up: IV Status: Completed infusion; IV Intake: 1000ml eh3 Disposition Summary: 09/20/22 17:36 Discharge Ordered Location: Home trip Problem: new trip Symptoms: have improved trip Condition: Stable trip Diagnosis - Fall on same level, unspecified trip - Strain of muscle and tendon of back wall of thorax trip - Low back pain trip - Unspecified kidney failure trip Followup: trip - With: Private Physician - When: 2 - 3 days - Reason: Recheck today's complaints, Continuance of care, Re-evaluation by your physician Followup: trip - With: Shira Squires MD - When: 2 - 3 days - Reason: Recheck today's complaints, Re-evaluation by your physician Discharge Instructions: - Discharge Summary Sheet trip - Acute Back Pain, Adult trip - Chronic Back Pain trip - Musculoskeletal Pain trip - How to Use an Incentive Spirometer trip - Chronic Back Pain, [id number] trip - Chronic Kidney Disease, Adult, [id number] trip - Incentive Spirometer Record trip Forms: - Medication Reconciliation Form trip - Thank You Letter trip - Antibiotic Education trip - Prescription Opioid Use trip - Patient Portal Instructions trip Prescriptions: - acetaminophen-codeine 300-30 mg Oral tablet - take 1 tablet by ORAL route every 6 hours as needed for pain; 20 tablet; trip Refills: 0, Product Selection Permitted Signatures: Dispatcher [employer] EDMS Tesha Saunders Corey, MD MD cha Hall, Erin, RN RN eh3 Alli, Frances Robertson RN RN mb9 Corrections: (The following items were deleted from the chart) 16:44 16:44 Head C Spine Cap W Con ordered. EDMS EDMS 16:44 16:44 Head C Spine Cap W Con ordered. EDMS EDMS 17:12 17:08 Chest Single View+RAD.RAD.BRZ ordered. EDMS EDMS 17:19 17:08 Head C Spine CAP W Con+CT.RAD.BRZ ordered. EDMS EDMS
[2022-09-20 17:43] LABS: Specific Gravity 1.014 (1.005-1.030); Urine Bilirubin NEGATIVE (Negative); Urine Blood Negative (Negative); Urine Clarity Clear (Clear); Urine Color Light-Yellow (Yellow); Urine Glucose NEGATIVE (Negative); Urine Protein NEGATIVE (Negative); Urine Urobilinogen Normal (Normal); Urine pH 5.5 (5.0-7.0)
[2022-09-20 21:27] VITALS: TEMP 98.2
[2022-09-20 21:32] VITALS: O2SAT 98
[2022-09-20 21:34] VITALS: BP 114/65
== END 2022-09-20 18:14 | disposition home or self-care (01) ==
LOC: ER 14:34
DX: S29.012A Strain of muscle and tendon of back wall of thorax, initial encounter (principal); M54.50 Low back pain, unspecified; N17.9 Acute kidney failure, unspecified; W18.30XA Fall on same level, unspecified, initial encounter; Y93.01 Activity, walking, marching and hiking; Y92.9 Unspecified place or not applicable
CPT/HCPCS: 85025; 80048; 36415; 86900; 86850; 86901; 80076; 81003; 83690; 70450; 71250; 72125; 71045; 96360; 99284; J7030

== ENCOUNTER 2023-06-24 14:17 | Observation (INO) | payer OTHER ==
--- OUTSIDE RECORDS SUMMARY | 2023-06-24 14:22 | XMS REPORT | Continuity of Care Document ---
Author Name Unknown Address [address] [facility] [address] [place], [place] [id number] [place] [address] thconnect Address [address] [facility]. [address] [place] [address] Care Team Providers Care Maintenance Dispatcher Name Role Phone Maral Medeiros Attending Clinician Unavailable Kat Tapia Attending Clinician Unavailable Payers Payer Name Policy Type Policy Number Effective Date Expirati on Date Source [facility] [id number] 2017 00:00:00 [facility] MEDICARE NOVITAS MB [id number] 2013 00:00:00 [facility] [id number] 2017 00:00:00 [facility] MEDICARE NOVITAS [id number] 2013 00:00:00 [facility] [id number] 2017 00:00:00 [facility] [id number] 2013 00:00:00 [facility] MEDICARE NOVITAS MB [id number] 2013 00:00:00 [facility] [id number] 2017 00:00:00 [facility] Problems Condition Name Condition Details Condition Category Status Onset Date Resolution Date Last Treatment Date Treating Clinician Comments Source Screening for malignant neoplasm of prostate Screening for prostate cancer Problem [facility] Mixed anxiety and depressive disorder Depression with anxiety Problem [facility] Gastroesop hageal reflux disease GERD (gastroeso phageal reflux disease) Problem [facility] Degenerati ve joint disease DJD (degenerat migdalia joint disease) Problem [facility] Hypertensi on Hypertensi on Problem [facility] Hypothyroi dism Hypothyroi dism Problem [facility] Overweight Overweight Problem Co [facility] Varicose veins Varicose veins Problem [facility] Hyperlipid emia Hyperlipid emia Problem [facility] Pain Chronic generalize d pain Problem [facility] Pure hyperglyce ridemia Essential hypertrigl yceridemia Problem [facility] Cholelithi asis without obstructio n Calculus of gallbladde r without cholecysti tis without obstructio n Problem [facility] [id number] Mild chronic anemia Problem [facility] [id number] Fatty liver Problem [facility] [id number] Spondylosi s of lumbar spine Problem [facility] Degenerati on of lumbar interverte bral disc Degenerati on of lumbar or lumbosacra l interverte bral disc Problem [facility] Benign prostatic hyperplasi a BPH (benign prostatic hyperplasi a) Problem [facility] Osteoarthr itis of multiple joints Osteoarthr itis, multiple sites Problem [facility] Chronic back pain Chronic back pain Problem [facility] Pulmonary fibrosis Pulmonary fibrosis Problem [facility] [id number] Spinal stenosis of lumbar region with neurogenic claudicati on Problem [facility] [id number] Chronic fatigue Problem [facility] Allergic rhinitis Allergic rhinitis, unspecifie d seasonalit y, unspecifie d trigger Problem [facility] Allergies, Adverse Reactions, Alerts Allergy Name Allergy Type Status Severity Reaction(s) Onset Date Inactive Date Treating Clinician Comments Source lisinopr il lisinopr il Active Unknown [facility] Social History Social Habit Start Date Stop Date Quantity Comments Source History of Tobacco Use [facility] At [facility] Smoking Status Start Date Stop Date Source Never Smoker [facility] Medications Ordered Medication Name Filled Medication Name Start Date Stop Date Current Medication? Ordering Clinician Indication Dosage Frequency Signature (SIG) Comments Components Source Lyrica 150 MG Lyrica 150 MG 2022-03 0-18 00:00: 00 No 1{capsu le} QD Lyrica 150 MG Lyrica 150 MG Lyrica 150 MG 2022-03 0-18 00:00: 00 No 1{capsu le} QD Lyrica 150 MG Lyrica 150 MG Lyrica 150 MG 2022-03 0-18 00:00: 00 No 1{capsu le} QD Lyrica 150 MG Lyrica 150 MG Lyrica 150 MG 2022-03 0-18 00:00: 00 No 1{capsu le} QD Lyrica 150 MG Lyrica 150 MG Lyrica 150 MG 2022-03 018 00:00: 00 No 1{capsu le} QD Lyrica 150 MG Pregabalin 200 MG Pregabalin 200 MG 2022-0 8-23 00:00: 00 No Pregabalin 200 MG Pregabalin 200 MG Pregabalin 200 MG 2022-0 8-23 00:00: 00 No Pregabalin 200 MG Pregabalin 200 MG Pregabalin 200 MG 2022-0 8- 00:00: 00 No Pregabalin 200 MG Pregabalin 200 MG Pregabalin 200 MG 2022-0 8- 00:00: 00 No Pregabalin 200 MG Pregabalin 200 MG Pregabalin 200 MG 2022-0 8- 00:00: 00 No Pregabalin 200 MG Lyrica 200 MG Lyrica 200 MG 2021-03 1 00:00: 00 No 1{capsu le} QD Lyrica 200 MG Flonase 50 MCG/ACT Flonase 50 MCG/ACT 2021-03 1-30 00:00: 00 No 2{spray _in_eac h_nostr il} QD Flonase 50 MCG/ACT Pregabalin 200 MG Pregabalin 200 MG 2021-03 0-28 00:00: 00 No Pregabalin 200 MG Pregabalin 200 MG Pregabalin 200 MG 2021-03 0-28 00:00: 00 No Pregabalin 200 MG Lyrica 200 MG Lyrica 200 MG 2021-0 6-20 00:00: 00 No 1{capsu le} TID Lyrica 200 MG Lyrica 200 MG Lyrica 200 MG 2021-0 5-13 00:00: 00 No 1{capsu le} BID Lyrica 200 MG Lyrica 200 MG Lyrica 200 MG 2021-0 2- 00:00: 00 No 1{capsu le} BID Lyrica 200 MG Lyrica 200 MG Lyrica 200 MG 2- 00:00: 00 No 1{capsu le} BID Lyrica 200 MG Zofran Zofran 2019-0 - 00:00: 00 Yes Na Tapia 1 tablet [facility] Zofran 4 MG Zofran 4 MG 2019-0 1- 00:00: 00 No 1{table t} Zofran 4 MG Zofran 4 MG Zofran 4 MG 2019-0 1-27 00:00: 00 No 1{table t} Zofran 4 MG Zofran 4 MG Zofran 4 MG 2019-0 -27 00:00: 00 No 1{table t} Zofran 4 MG Zofran 4 MG Zofran 4 MG 2019-0 1-27 00:00: 00 No 1{table t} Zofran 4 MG Zofran 4 MG Zofran 4 MG 2019-0 -27 00:00: 00 No 1{table t} Zofran 4 MG Zofran 4 MG Zofran 4 MG 2019-0 -27 00:00: 00 No 1{table t} Zofran 4 MG Famotidine Famotidine 2018-03 00:00: 00 Yes Na Tapia 1 tablet as needed [facility] Famotidine 40 MG Famotidine 40 MG [id number] 00:00: 00 No 1{table t_as_ne eded} BID Famotidine 40 MG Famotidine 40 MG Famotidine 40 MG 2018-03 00:00: 00 No 1{table t_as_ne eded} BID Famotidine 40 MG Famotidine 40 MG Famotidine 40 MG 2018-03 00:00: 00 No 1{table t_as_ne eded} BID Famotidine 40 MG Aspir-81 Aspir-81 Yes Na Tapia 1 tablet [facility] Manchester Manchester Yes Na Tapia 1 tablet as needed [facility] Lipitor Lipitor Yes Na Tapia 1 tablet [facility] Lyrica Lyrica Yes Na Tapia 1 capsule [facility] Ferrous Sulfate Ferrous Sulfate Yes Na Tapia 1 tablet [facility] Ventolin HFA Ventolin HFA Yes Na Tapia 2 puffs as needed [facility] Cozaar Cozaar Yes Na Tapia 1 tablet [facility] Nitrostat Nitrostat Yes Na Tapia not defined [facility] Ferrous Sulfate Ferrous Sulfate Yes Na Tapia 1 tablet [facility] Norvasc Norvasc Yes Na Tapia 1 tablet [facility] Levothyroxi ne Sodium Levothyroxi ne Sodium Yes Na Tapia 1 tablet on an empty stomach in the morning [facility] Citalopram Hydrobromid e Citalopram Hydrobromid e Yes Na Tapia 1 tablet [facility] Ranitidine HCl Ranitidine HCl Yes Na Tapia 1 capsule [facility] Zyrtec Allergy Zyrtec Allergy Yes Na Tapia 1 tablet [facility] Lipitor 20 MG Lipitor 20 MG No 1{table t} QD Lipitor 20 MG Nitrostat 0.4 MG Nitrostat 0.4 MG No Nitrostat 0.4 MG Manchester 7.5-325 MG Manchester 7.5-325 MG No 1{table t_as_ne eded} TID [place] 7.5-325 MG Levothyroxi ne Sodium 75 MCG Levothyroxi ne Sodium 75 MCG No QD Levothyrox ine Sodium 75 MCG Ventolin HFA 108 (90 Base) MCG/ACT Ventolin HFA 108 (90 Base) MCG/ACT No 2{puffs _as_nee ded} QID Ventolin HFA 108 (90 Base) MCG/ACT Citalopram Hydrobromid e 20 MG Citalopram Hydrobromid e 20 MG No 1{table t} QD Citalopram Hydrobromi de 20 MG Ferrous Sulfate 325 (65 Fe) MG Ferrous Sulfate 325 (65 Fe) MG No 1{table t} BID Ferrous Sulfate 325 (65 Fe) MG ZyrTEC Allergy 10 MG ZyrTEC Allergy 10 MG No 1{table t} QD ZyrTEC Allergy 10 MG Norvasc 5 MG Norvasc 5 MG No 1{table t} QD Norvasc 5 MG Cozaar 100 MG Cozaar 100 MG No 1{table t} QD Cozaar 100 MG Citalopram Hydrobromid e 20 MG Citalopram Hydrobromid e 20 MG No 1{table t} QD Citalopram Hydrobromi de 20 MG Cozaar 100 MG Cozaar 100 MG No 1{table t} QD Cozaar 100 MG Levothyroxi ne Sodium 75 MCG Levothyroxi ne Sodium 75 MCG No QD Levothyrox ine Sodium 75 MCG Lipitor 20 MG Lipitor 20 MG No 1{table t} QD Lipitor 20 MG Nitrostat 0.4 MG Nitrostat 0.4 MG No Nitrostat 0.4 MG ZyrTEC Allergy 10 MG ZyrTEC Allergy 10 MG No 1{table t} QD ZyrTEC Allergy 10 MG Ventolin HFA 108 (90 Base) MCG/ACT Ventolin HFA 108 (90 Base) MCG/ACT No 2{puffs _as_nee ded} QID Ventolin HFA 108 (90 Base) MCG/ACT Ferrous Sulfate 325 (65 Fe) MG Ferrous Sulfate 325 (65 Fe) MG No 1{table t} BID Ferrous Sulfate 325 (65 Fe) MG Norvasc 5 MG Norvasc 5 MG No 1{table t} QD Norvasc 5 MG ZyrTEC Allergy 10 MG ZyrTEC Allergy 10 MG No 1{table t} QD ZyrTEC Allergy 10 MG Ferrous Sulfate 325 (65 Fe) MG Ferrous Sulfate 325 (65 Fe) MG No 1{table t} BID Ferrous Sulfate 325 (65 Fe) MG Ventolin HFA 108 (90 Base) MCG/ACT Ventolin HFA 108 (90 Base) MCG/ACT No 2{puffs _as_nee ded} QID Ventolin HFA 108 (90 Base) MCG/ACT Lyrica 200 MG Lyrica 200 MG No 1{capsu le} BID Lyrica 200 MG Norvasc 5 MG Norvasc 5 MG No 1{table t} QD Norvasc 5 MG Cozaar 100 MG Cozaar 100 MG No 1{table t} QD Cozaar 100 MG Levothyroxi ne Sodium 75 MCG Levothyroxi ne Sodium 75 MCG No QD Levothyrox ine Sodium 75 MCG Ferrous Sulfate 325 (65 Fe) MG Ferrous Sulfate 325 (65 Fe) MG No 1{table t} BID Ferrous Sulfate 325 (65 Fe) MG ZyrTEC Allergy 10 MG ZyrTEC Allergy 10 MG No 1{table t} QD ZyrTEC Allergy 10 MG Lipitor 20 MG Lipitor 20 MG No 1{table t} QD Lipitor 20 MG Citalopram Hydrobromid e 20 MG Citalopram Hydrobromid e 20 MG No 1{table t} QD Citalopram Hydrobromi de 20 MG Nitrostat 0.4 MG Nitrostat 0.4 MG No Nitrostat 0.4 MG Lipitor 20 MG Lipitor 20 MG No 1{table t} QD Lipitor 20 MG ZyrTEC Allergy 10 MG ZyrTEC Allergy 10 MG No 1{table t} QD ZyrTEC Allergy 10 MG Ferrous Sulfate 325 (65 Fe) MG Ferrous Sulfate 325 (65 Fe) MG No 1{table t} BID Ferrous Sulfate 325 (65 Fe) MG Citalopram Hydrobromid e 20 MG Citalopram Hydrobromid e 20 MG No 1{table t} QD Citalopram Hydrobromi de 20 MG Ventolin HFA 108 (90 Base) MCG/ACT Ventolin HFA 108 (90 Base) MCG/ACT No 2{puffs _as_nee ded} QID Ventolin HFA 108 (90 Base) MCG/ACT Famotidine 40 MG Famotidine 40 MG No Famotidine 40 MG Norvasc 5 MG Norvasc 5 MG No 1{table t} QD Norvasc 5 MG Cozaar 100 MG Cozaar 100 MG No 1{table t} QD Cozaar 100 MG Nitrostat 0.4 MG Nitrostat 0.4 MG No Nitrostat 0.4 MG Levothyroxi ne Sodium 75 MCG Levothyroxi ne Sodium 75 MCG No QD Levothyrox ine Sodium 75 MCG Nitrostat 0.4 MG Nitrostat 0.4 MG No Nitrostat 0.4 MG Norvasc 5 MG Norvasc 5 MG No 1{table t} QD Norvasc 5 MG Levothyroxi ne Sodium 75 MCG Levothyroxi ne Sodium 75 MCG No QD Levothyrox ine Sodium 75 MCG Ferrous Sulfate 325 (65 Fe) MG Ferrous Sulfate 325 (65 Fe) MG No 1{table t} BID Ferrous Sulfate 325 (65 Fe) MG Famotidine 40 MG Famotidine 40 MG No Famotidine 40 MG Citalopram Hydrobromid e 20 MG Citalopram Hydrobromid e 20 MG No 1{table t} QD Citalopram Hydrobromi de 20 MG Ventolin HFA 108 (90 Base) MCG/ACT Ventolin HFA 108 (90 Base) MCG/ACT No 2{puffs _as_nee ded} QID Ventolin HFA 108 (90 Base) MCG/ACT Cozaar 100 MG Cozaar 100 MG No 1{table t} QD Cozaar 100 MG Lipitor 20 MG Lipitor 20 MG No 1{table t} QD Lipitor 20 MG Flonase 50 MCG/ACT Flonase 50 MCG/ACT No 2{spray _in_eac h_nostr il} QD Flonase 50 MCG/ACT Ferrous Sulfate 325 (65 Fe) MG Ferrous Sulfate 325 (65 Fe) MG No 1{table t} BID Ferrous Sulfate 325 (65 Fe) MG HYDROcodone -Acetaminop hen 5-325 MG HYDROcodone -Acetaminop hen 5-325 MG No 1{table t_as_ne eded} QID HYDROcodon e-Acetamin ophen 5-325 MG traMADol HCl 50 MG traMADol HCl 50 MG No 1{table t_as_ne eded} QD traMADol HCl 50 MG Cozaar 100 MG Cozaar 100 MG No 1{table t} QD Cozaar 100 MG Ondansetron HCl 4 MG Ondansetron HCl 4 MG No 1{table t} QD Ondansetro n HCl 4 MG Lipitor 20 MG Lipitor 20 MG No 1{table t} QD Lipitor 20 MG ZyrTEC Allergy 10 MG ZyrTEC Allergy 10 MG No 1{table t} QD ZyrTEC Allergy 10 MG Norvasc 5 MG Norvasc 5 MG No 1{table t} QD Norvasc 5 MG Ranitidine HCl 150 MG Ranitidine HCl 150 MG No 1{capsu le} BID Ranitidine HCl 150 MG Famotidine 40 MG Famotidine 40 MG No 1{table t_as_ne eded} BID Famotidine 40 MG Citalopram Hydrobromid e 20 MG Citalopram Hydrobromid e 20 MG No 1{table t} QD Citalopram Hydrobromi de 20 MG Levothyroxi ne Sodium 50 MCG Levothyroxi ne Sodium 50 MCG No Levothyrox ine Sodium 50 MCG Levothyroxi ne Sodium 50 MCG Levothyroxi ne Sodium 50 MCG No Levothyrox ine Sodium 50 MCG Norvasc 5 MG Norvasc 5 MG No 1{table t} QD Norvasc 5 MG Cozaar 100 MG Cozaar 100 MG No 1{table t} QD Cozaar 100 MG Flonase 50 MCG/ACT Flonase 50 MCG/ACT No 2{spray _in_eac h_nostr il} QD Flonase 50 MCG/ACT Lipitor 20 MG Lipitor 20 MG No 1{table t} QD Lipitor 20 MG Ferrous Sulfate 325 (65 Fe) MG Ferrous Sulfate 325 (65 Fe) MG No 1{table t} BID Ferrous Sulfate 325 (65 Fe) MG traMADol HCl 50 MG traMADol HCl 50 MG No 1{table t_as_ne eded} QD traMADol HCl 50 MG Famotidine 40 MG Famotidine 40 MG No 1{table t_as_ne eded} BID Famotidine 40 MG HYDROcodone -Acetaminop hen 5-325 MG HYDROcodone -Acetaminop hen 5-325 MG No 1{table t_as_ne eded} QID HYDROcodon e-Acetamin ophen 5-325 MG Ondansetron HCl 4 MG Ondansetron HCl 4 MG No 1{table t} QD Ondansetro n HCl 4 MG Citalopram Hydrobromid e 20 MG Citalopram Hydrobromid e 20 MG No 1{table t} QD Citalopram Hydrobromi de 20 MG ZyrTEC Allergy 10 MG ZyrTEC Allergy 10 MG No 1{table t} QD ZyrTEC Allergy 10 MG Ranitidine HCl 150 MG Ranitidine HCl 150 MG No 1{capsu le} BID Ranitidine HCl 150 MG Levothyroxi ne Sodium 50 MCG Levothyroxi ne Sodium 50 MCG No Levothyrox ine Sodium 50 MCG Norvasc 5 MG Norvasc 5 MG No 1{table t} QD Norvasc 5 MG Cozaar 100 MG Cozaar 100 MG No 1{table t} QD Cozaar 100 MG Flonase 50 MCG/ACT Flonase 50 MCG/ACT No 2{spray _in_eac h_nostr il} QD Flonase 50 MCG/ACT Lipitor 20 MG Lipitor 20 MG No 1{table t} QD Lipitor 20 MG Ferrous Sulfate 325 (65 Fe) MG Ferrous Sulfate 325 (65 Fe) MG No 1{table t} BID Ferrous Sulfate 325 (65 Fe) MG traMADol HCl 50 MG traMADol HCl 50 MG No 1{table t_as_ne eded} QD traMADol HCl 50 MG Famotidine 40 MG Famotidine 40 MG No 1{table t_as_ne eded} BID Famotidine 40 MG HYDROcodone -Acetaminop hen 5-325 MG HYDROcodone -Acetaminop hen 5-325 MG No 1{table t_as_ne eded} QID HYDROcodon e-Acetamin ophen 5-325 MG Ondansetron HCl 4 MG Ondansetron HCl 4 MG No 1{table t} QD Ondansetro n HCl 4 MG Citalopram Hydrobromid e 20 MG Citalopram Hydrobromid e 20 MG No 1{table t} QD Citalopram Hydrobromi de 20 MG ZyrTEC Allergy 10 MG ZyrTEC Allergy 10 MG No 1{table t} QD ZyrTEC Allergy 10 MG Ranitidine HCl 150 MG Ranitidine HCl 150 MG No 1{capsu le} BID Ranitidine HCl 150 MG Levothyroxi ne Sodium 50 MCG Levothyroxi ne Sodium 50 MCG No Levothyrox ine Sodium 50 MCG Norvasc 5 MG Norvasc 5 MG No 1{table t} QD Norvasc 5 MG Cozaar 100 MG Cozaar 100 MG No 1{table t} QD Cozaar 100 MG Flonase 50 MCG/ACT Flonase 50 MCG/ACT No 2{spray _in_eac h_nostr il} QD Flonase 50 MCG/ACT Lipitor 20 MG Lipitor 20 MG No 1{table t} QD Lipitor 20 MG Ferrous Sulfate 325 (65 Fe) MG Ferrous Sulfate 325 (65 Fe) MG No 1{table t} BID Ferrous Sulfate 325 (65 Fe) MG traMADol HCl 50 MG traMADol HCl 50 MG No 1{table t_as_ne eded} QD traMADol HCl 50 MG Famotidine 40 MG Famotidine 40 MG No 1{table t_as_ne eded} BID Famotidine 40 MG HYDROcodone -Acetaminop hen 5-325 MG HYDROcodone -Acetaminop hen 5-325 MG No 1{table t_as_ne eded} QID HYDROcodon e-Acetamin ophen 5-325 MG Ondansetron HCl 4 MG Ondansetron HCl 4 MG No 1{table t} QD Ondansetro n HCl 4 MG Citalopram Hydrobromid e 20 MG Citalopram Hydrobromid e 20 MG No 1{table t} QD Citalopram Hydrobromi de 20 MG ZyrTEC Allergy 10 MG ZyrTEC Allergy 10 MG No 1{table t} QD ZyrTEC Allergy 10 MG Ranitidine HCl 150 MG Ranitidine HCl 150 MG No 1{capsu le} BID Ranitidine HCl 150 MG Levothyroxi ne Sodium 50 MCG Levothyroxi ne Sodium 50 MCG No Levothyrox ine Sodium 50 MCG Norvasc 5 MG Norvasc 5 MG No 1{table t} QD Norvasc 5 MG Cozaar 100 MG Cozaar 100 MG No 1{table t} QD Cozaar 100 MG Flonase 50 MCG/ACT Flonase 50 MCG/ACT No 2{spray _in_eac h_nostr il} QD Flonase 50 MCG/ACT Lipitor 20 MG Lipitor 20 MG No 1{table t} QD Lipitor 20 MG Ferrous Sulfate 325 (65 Fe) MG Ferrous Sulfate 325 (65 Fe) MG No 1{table t} BID Ferrous Sulfate 325 (65 Fe) MG traMADol HCl 50 MG traMADol HCl 50 MG No 1{table t_as_ne eded} QD traMADol HCl 50 MG Famotidine 40 MG Famotidine 40 MG No 1{table t_as_ne eded} BID Famotidine 40 MG HYDROcodone -Acetaminop hen 5-325 MG HYDROcodone -Acetaminop hen 5-325 MG No 1{table t_as_ne eded} QID HYDROcodon e-Acetamin ophen 5-325 MG Ondansetron HCl 4 MG Ondansetron HCl 4 MG No 1{table t} QD Ondansetro n HCl 4 MG Citalopram Hydrobromid e 20 MG Citalopram Hydrobromid e 20 MG No 1{table t} QD Citalopram Hydrobromi de 20 MG ZyrTEC Allergy 10 MG ZyrTEC Allergy 10 MG No 1{table t} QD ZyrTEC Allergy 10 MG Ranitidine HCl 150 MG Ranitidine HCl 150 MG No 1{capsu le} BID Ranitidine HCl 150 MG ZyrTEC Allergy 10 MG ZyrTEC Allergy 10 MG 08-02 00:00 :00 No 1{table t} QD ZyrTEC Allergy 10 MG Immunizations Ordered Immunization Name Filled Immunization Name Date Status Comments Source Prevnar 20 (PCV20) Prevnar 20 (PCV20) 2021-11-03 15:09:00 Completed [facility] Prevnar 20 (PCV20) Prevnar 20 (PCV20) 2021-11-03 15:09:00 Completed [facility] Prevnar 20 (PCV20) Prevnar 20 (PCV20) 2021-11-03 15:09:00 Completed [facility] Prevnar 20 (PCV20) Prevnar 20 (PCV20) 2021-11-03 15:09:00 Completed [facility] Twinrix Twinrix 2021-11-03 15:07:00 Completed [facility] Twinrix Twinrix 2021-11-03 15:07:00 Completed [facility] Twinrix Twinrix 2021-11-03 15:07:00 Completed [facility] Twinrix Twinrix 2021-11-03 15:07:00 Completed [facility] FLUZONE HIGH DOSE OVER 65 FLUZONE HIGH DOSE OVER 65 2020-12-29 09:59:00 Completed [facility] FLUZONE HIGH DOSE OVER 65 FLUZONE HIGH DOSE OVER 65 2020-12-29 09:59:00 Completed [facility] FLUZONE HIGH DOSE OVER 65 FLUZONE HIGH DOSE OVER 65 2020-12-29 09:59:00 Completed [facility] FLUZONE HIGH DOSE OVER 65 FLUZONE HIGH DOSE OVER 65 2020-12-29 09:59:00 Completed [facility] FLUZONE HIGH DOSE OVER 65 FLUZONE HIGH DOSE OVER 65 2020-12-29 09:59:00 Completed [facility] FLUZONE HIGH DOSE OVER 65 FLUZONE HIGH DOSE OVER 65 2020-12-29 09:59:00 Completed [facility] FLUZONE HIGH DOSE OVER 65 FLUZONE HIGH DOSE OVER 65 2020-12-29 09:59:00 Completed [facility] FLUZONE HIGH DOSE OVER 65 FLUZONE HIGH DOSE OVER 65 2020-12-29 09:59:00 Completed [facility] FLUZONE HIGH DOSE OVER 65 FLUZONE HIGH DOSE OVER 65 2020-12-29 09:59:00 Completed [facility] FLUZONE HIGH DOSE OVER 65 FLUZONE HIGH DOSE OVER 65 2020-12-29 09:59:00 Completed [facility] FLUZONE HIGH DOSE OVER 65 FLUZONE HIGH DOSE OVER 65 2020-12-29 09:59:00 Completed [facility] FLUZONE HIGH DOSE OVER 65 FLUZONE HIGH DOSE OVER 65 2020-12-29 09:59:00 Completed [facility] FLUZONE HIGH DOSE OVER 65 FLUZONE HIGH DOSE OVER 65 2020-12-29 09:59:00 Completed [facility] FLUZONE HIGH DOSE OVER 65 FLUZONE HIGH DOSE OVER 65 2020-12-29 09:59:00 Completed [facility] Moderna COVID-19 Vaccine Moderna COVID-19 Vaccine 2020-07-11 09:41:00 Completed [facility] Moderna COVID-19 Vaccine Moderna COVID-19 Vaccine 2020-07-11 09:41:00 Completed [facility] Moderna COVID-19 Vaccine Moderna COVID-19 Vaccine 2020-07-11 09:41:00 Completed [facility] Moderna COVID-19 Vaccine Moderna COVID-19 Vaccine 2020-07-11 09:41:00 Completed [facility] Moderna COVID-19 Vaccine Moderna COVID-19 Vaccine 2020-07-11 09:41:00 Completed [facility] Moderna COVID-19 Vaccine Moderna COVID-19 Vaccine 2020-07-11 09:41:00 Completed [facility] Moderna COVID-19 Vaccine Moderna COVID-19 Vaccine 2020-07-11 09:41:00 Completed [facility] Moderna COVID-19 Vaccine Moderna COVID-19 Vaccine 2020-07-11 09:41:00 Completed [facility] Moderna COVID-19 Vaccine Moderna COVID-19 Vaccine 2020-07-11 09:41:00 Completed [facility] Moderna COVID-19 Vaccine Moderna COVID-19 Vaccine 2020-07-11 09:41:00 Completed [facility] Moderna COVID-19 Vaccine Moderna COVID-19 Vaccine 2020-07-11 09:41:00 Completed [facility] Moderna COVID-19 Vaccine Moderna COVID-19 Vaccine 2020-07-11 09:41:00 Completed [facility] Moderna COVID-19 Vaccine Moderna COVID-19 Vaccine 2020-07-11 09:41:00 Completed [facility] Moderna COVID-19 Vaccine Moderna COVID-19 Vaccine 2020-07-11 09:41:00 Completed [facility] Moderna COVID-19 Vaccine Moderna COVID-19 Vaccine 2020-06-23 09:41:00 Completed [facility] Moderna COVID-19 Vaccine Moderna COVID-19 Vaccine 2020-06-23 09:41:00 Completed [facility] Moderna COVID-19 Vaccine Moderna COVID-19 Vaccine 2020-06-23 09:41:00 Completed [facility] Moderna COVID-19 Vaccine Moderna COVID-19 Vaccine 2020-06-23 09:41:00 Completed [facility] Moderna COVID-19 Vaccine Moderna COVID-19 Vaccine 2020-06-23 09:41:00 Completed [facility] Moderna COVID-19 Vaccine Moderna COVID-19 Vaccine 2020-06-23 09:41:00 Completed [facility] Moderna COVID-19 Vaccine Moderna COVID-19 Vaccine 2020-06-23 09:41:00 Completed [facility] Moderna COVID-19 Vaccine Moderna COVID-19 Vaccine 2020-06-23 09:41:00 Completed [facility] Moderna COVID-19 Vaccine Moderna COVID-19 Vaccine 2020-06-23 09:41:00 Completed [facility] Moderna COVID-19 Vaccine Moderna COVID-19 Vaccine 2020-06-23 09:41:00 Completed [facility] Moderna COVID-19 Vaccine Moderna COVID-19 Vaccine 2020-06-23 09:41:00 Completed [facility] Moderna COVID-19 Vaccine Moderna COVID-19 Vaccine 2020-06-23 09:41:00 Completed [facility] Moderna COVID-19 Vaccine Moderna COVID-19 Vaccine 2020-06-23 09:41:00 Completed [facility] Moderna COVID-19 Vaccine Moderna COVID-19 Vaccine 2020-06-23 09:41:00 Completed [facility] FluAD FluAD 2019-12-21 09:16:00 Completed [facility] FluAD FluAD 2019-12-21 09:16:00 Completed [facility] FluAD FluAD 2019-12-21 09:16:00 Completed [facility] FluAD FluAD 2019-12-21 09:16:00 Completed [facility] FluAD FluAD 2019-12-21 09:16:00 Completed [facility] FluAD FluAD 2019-12-21 09:16:00 Completed [facility] FluAD FluAD 2019-12-21 09:16:00 Completed [facility] FluAD FluAD 2019-12-21 09:16:00 Completed [facility] FluAD FluAD 2019-12-21 09:16:00 Completed [facility] FluAD FluAD 2019-12-21 09:16:00 Completed [facility] FluAD FluAD 2019-12-21 09:16:00 Completed [facility] FluAD FluAD 2019-12-21 09:16:00 Completed [facility] FluAD FluAD 2019-12-21 09:16:00 Completed [facility] FluAD FluAD 2019-12-21 09:16:00 Completed [facility] Prevnar 20 (PCV20) Prevnar 20 (PCV20) Unknown Completed [facility] Moderna COVID-19 Vaccine Moderna COVID-19 Vaccine Unknown Completed [facility] Moderna COVID-19 Vaccine Moderna COVID-19 Vaccine Unknown Completed [facility] FluAD FluAD Unknown Completed [facility] Twinrix Twinrix Unknown Completed [facility] FLUZONE HIGH DOSE OVER 65 FLUZONE HIGH DOSE OVER 65 Unknown Completed [facility] Prevnar 20 (PCV20) Prevnar 20 (PCV20) Unknown Completed [facility] Moderna COVID-19 Vaccine Moderna COVID-19 Vaccine Unknown Completed [facility] Moderna COVID-19 Vaccine Moderna COVID-19 Vaccine Unknown Completed [facility] FluAD FluAD Unknown Completed [facility] Twinrix Twinrix Unknown Completed [facility] FLUZONE HIGH DOSE OVER 65 FLUZONE HIGH DOSE OVER 65 Unknown Completed [facility] Prevnar 20 (PCV20) Prevnar 20 (PCV20) Unknown Completed [facility] Moderna COVID-19 Vaccine Moderna COVID-19 Vaccine Unknown Completed [facility] Moderna COVID-19 Vaccine Moderna COVID-19 Vaccine Unknown Completed [facility] FluAD FluAD Unknown Completed [facility] Twin[facility] Twinrix Unknown Completed [facility] FLUZONE HIGH DOSE OVER 65 FLUZONE HIGH DOSE OVER 65 Unknown Completed [facility] Prevnar 20 (PCV20) Prevnar 20 (PCV20) Unknown Completed [facility] Moderna COVID-19 Vaccine Moderna COVID-19 Vaccine Unknown Completed [facility] Moderna COVID-19 Vaccine Moderna COVID-19 Vaccine Unknown Completed [facility] FluAD FluAD Unknown Completed [facility] Twinrix Unknown Completed [facility] FLUZONE HIGH DOSE OVER 65 FLUZONE HIGH DOSE OVER 65 Unknown Completed [facility] Prevnar 20 (PCV20) Prevnar 20 (PCV20) Unknown Completed [facility] Moderna COVID-19 Vaccine Moderna COVID-19 Vaccine Unknown Completed [facility] Moderna COVID-19 Vaccine Moderna COVID-19 Vaccine Unknown Completed [facility] FluAD FluAD Unknown Completed [facility] Twin[facility] Twinrix Unknown Completed [facility] FLUZONE HIGH DOSE OVER 65 FLUZONE HIGH DOSE OVER 63 Unknown Completed [facility] Vital Signs Vital Name Observation Time Observation Value Comments Carlos noriega height 2022-11-23 08:40:00 66.0 [in_i] Comm on [facility] weight 2022-11-23 08:40:00 160 [lb_av] Comm on [facility] bmi 2022-11-23 08:40:00 25.82 kg/m2 Comm on [facility] height 2022-10-01 09:00:00 66.0 [in_i] Comm on [facility] weight 2022-10-01 09:00:00 165 [lb_av] Comm on [facility] temperature 2022-10-01 09:00:00 97.4 [degF] Com [facility] bmi 2022-10-01 09:00:00 26.63 kg/m2 Comm on [facility] oximetry 2022-10-01 09:00:00 96 % Commo n [facility] respiratory rate 2022-10-01 09:00:00 16 /min [facility] blood pressure systolic 2022-10-01 09:00:00 132 mm[Hg] [facility] blood pressure diastolic 2022-10-01 09:00:00 80 mm[Hg] [facility] height 2022-07-02 09:00:00 66.0 [in_i] Comm on [facility] weight 2022-07-02 09:00:00 168 [lb_av] Comm on [facility] temperature 2022-07-02 09:00:00 97.3 [degF] Com [facility] bmi 2022-07-02 09:00:00 27.11 kg/m2 Comm on [facility] oximetry 2022-07-02 09:00:00 95 % Commo n [facility] respiratory rate 2022-07-02 09:00:00 16 /min [facility] blood pressure systolic 2022-07-02 09:00:00 130 mm[Hg] [facility] blood pressure diastolic 2022-07-02 09:00:00 76 mm[Hg] [facility] height 2022-05-25 08:20:00 66.0 [in_i] Comm on [facility] weight 2022-05-25 08:20:00 169.8 [lb_av] Co mmon [facility] temperature 2022-05-25 08:20:00 97.4 [degF] Com mon [facility] bmi 2022-05-25 08:20:00 27.4 kg/m2 Commo n [facility] oximetry 2022-05-25 08:20:00 96 % Commo n [facility] respiratory rate 2022-05-25 08:20:00 16 /min [facility] blood pressure systolic 2022-05-25 08:20:00 130 mm[Hg] [facility] blood pressure diastolic 2022-05-25 08:20:00 72 mm[Hg] [facility] height 2022-02-03 08:40:00 66.0 [in_i] Comm on [facility] weight 2022-02-03 08:40:00 170 [lb_av] Comm on [facility] bmi 2022-02-03 08:40:00 27.44 kg/m2 Comm on [facility] height 2022-01-07 09:00:00 66.0 [in_i] Comm on [facility] weight 2022-01-07 09:00:00 175.8 [lb_av] Co mmon [facility] temperature 2022-01-07 09:00:00 98.0 [degF] Com mon [facility] bmi 2022-01-07 09:00:00 28.37 kg/m2 Comm on [facility] height 2021-07-17 08:20:00 66.0 [in_i] Comm on [facility] weight 2021-07-17 08:20:00 175.8 [lb_av] Co mmon [facility] temperature 2021-07-17 08:20:00 97.9 [degF] Com mon [facility] bmi 2021-07-17 08:20:00 28.37 kg/m2 Comm on [facility] oximetry 2021-07-17 08:20:00 95 % Commo n [facility] respiratory rate 2021-07-17 08:20:00 17 /min [facility] blood pressure systolic 2021-07-17 08:20:00 129 mm[Hg] [facility] blood pressure diastolic 2021-07-17 08:20:00 76 mm[Hg] [facility] height 2021-01-16 13:40:00 66.0 [in_i] Comm on [facility] weight 2021-01-16 13:40:00 173 [lb_av] Comm on [facility] temperature 2021-01-16 13:40:00 97.9 [degF] Com [facility] bmi 2021-01-16 13:40:00 27.92 kg/m2 Comm on [facility] oximetry 2021-01-16 13:40:00 97 % Commo n [facility] blood pressure systolic 2021-01-16 13:40:00 132 mm[Hg] [facility] blood pressure diastolic 2021-01-16 13:40:00 75 mm[Hg] [facility] height 2020-12-29 08:20:00 66.0 [in_i] Comm on [facility] weight 2020-12-29 08:20:00 172 [lb_av] Comm on [facility] temperature 2020-12-29 08:20:00 97.7 [degF] Com mon [facility] bmi 2020-12-29 08:20:00 27.76 kg/m2 Comm on [facility] oximetry 2020-12-29 08:20:00 95 % Commo n [facility] respiratory rate 2020-12-29 08:20:00 17 /min [facility] blood pressure systolic 2020-12-29 08:20:00 129 mm[Hg] [facility] blood pressure diastolic 2020-12-29 08:20:00 82 mm[Hg] [facility] height 2020-12-29 10:00:00 66.0 [in_i] Comm on [facility] weight 2020-12-29 10:00:00 172.0 [lb_av] Co mmon [facility] temperature 2020-12-29 10:00:00 97.7 [degF] Com mon [facility] bmi 2020-12-29 10:00:00 27.76 kg/m2 Comm on [facility] oximetry 2020-12-29 10:00:00 95 % Commo n [facility] respiratory rate 2020-12-29 10:00:00 17 /min [facility] blood pressure systolic 2020-12-29 10:00:00 129 mm[Hg] [facility] blood pressure diastolic 2020-12-29 10:00:00 82 mm[Hg] [facility] Encounters Start Date/Time End Date/Time Encounter Type Admission Type Attending [facility] Facility Care Department Encounter ID Source 2023-01-10 09:03:00 Outpatient [facility] [id number] [facility] 2022-09-29 08:57:00 Outpatient MedeirosMarnie villarreali [facility] [id number] [facility] 2022-04-12 10:32:00 Outpatient Waldemar Maral [facility] [id number] [facility] 2022-02-01 14:14:00 Outpatient Tapia, Na [facility] [id number] [facility] 2021-11-02 08:15:00 Outpatient Tapia, Na [facility] [id number] [facility] 2021-09-22 11:11:00 Outpatient Tapia, Na [facility] [id number] [facility] 2021-07-15 13:05:00 Outpatient Tapia, Na [facility] [id number] [facility] 2021-04-01 14:16:50 Outpatient Tapia, Na [facility] [id number] [facility] 2021-04-01 14:12:03 Outpatient Tapia, Na [facility] [id number] [facility] 2021-04-01 14:04:53 Outpatient Tapia, Na [facility] [id number] [facility] 2021-04-01 12:21:34 Outpatient Tapia, Na [facility] [id number] [facility] 2021-04-01 11:54:57 Outpatient Tapia, Na [facility] [id number] [facility] 2021-04-01 11:19:01 Outpatient Tapia, Na [facility] [id number] [facility] 2021-04-01 11:17:07 Outpatient Tapia, Na [facility] [id number] [facility] 2021-04-01 11:10:12 Outpatient Tapia, Na [facility] [id number] [facility] 2021-04-01 10:58:07 Outpatient Tapia, Na [facility] [id number] [facility] 2022-11-23 00:00:00 2022-11-23 00:00:00 OFFICE VISIT ESTAB PT LEVEL 4 [facility] [id number] [facility] 2022-10-01 00:00:00 2022-10-01 00:00:00 OFFICE VISIT ESTAB PT LEVEL 4 [facility] [id number] [facility] 2022-09-03 00:00:00 2022-09-03 00:00:00 (TEL) [facility] [id number] [facility] 2022-07-02 00:00:00 2022-07-02 00:00:00 OFFICE VISIT ESTAB PT LEVEL 4 [facility] [id number] [facility] 2022-05-25 00:00:00 2022-05-25 00:00:00 OFFICE VISIT ESTAB PT LEVEL 4 [facility] [id number] [facility] 2022-02-03 00:00:00 2022-02-03 00:00:00 OFFICE VISIT EST PT LEVEL 3 [facility] [id number] [facility] 2022-01-07 00:00:00 2022-01-07 00:00:00 SUB ANNUAL [facility] WELLNESS VISIT [facility] [id number] [facility] 2021-11-11 00:00:00 2021-11-11 00:00:00 (TEL) [facility] [id number] [facility] 2021-11-04 00:00:00 2021-11-04 00:00:00 OL DIG E/M SVC 21+ MIN [facility] [id number] [facility] 2021-08-24 00:00:00 2021-08-24 00:00:00 (TEL) [facility] [id number] [facility] 2021-08-24 00:00:00 2021-08-24 00:00:00 (TEL) [facility] [id number] [facility] 2021-07-23 00:00:00 2021-07-23 00:00:00 (TEL) [facility] [id number] [facility] 2021-07-17 00:00:00 2021-07-17 00:00:00 OFFICE VISIT ESTAB PT LEVEL 4 [facility] [id number] [facility] 2021-04-10 00:00:00 2021-04-10 00:00:00 (TEL) [facility] [id number] [facility] 2021-04-09 00:00:00 2021-04-09 00:00:00 OFFICE VISIT ESTAB PT LEVEL 4 [facility] [id number] [facility] 2021-01-16 00:00:00 2021-01-16 00:00:00 OFFICE VISIT EST PT LEVEL 3 [facility] [id number] [facility] 2020-12-29 00:00:00 2020-12-29 00:00:00 OFFICE VISIT ESTAB PT LEVEL 4 [facility] [id number] [facility] 2020-12-29 00:00:00 2020-12-29 00:00:00 SUB ANNUAL [facility] WELLNESS VISIT [facility] [id number] [facility] 2020-12-29 00:00:00 2020-12-29 00:00:00 (TEL) [facility] [id number] [facility] 2020-09-25 00:00:00 2020-09-25 00:00:00 Outpatient [facility] [id number] [facility] 2020-06-24 00:00:00 2020-06-24 00:00:00 Outpatient [facility] [id number] [facility] 2020-04-29 00:00:00 2020-04-29 00:00:00 Outpatient [facility] [id number] [facility] 2020-04-26 00:00:00 2020-04-26 00:00:00 Outpatient [facility] [id number] [facility] 2020-03-25 00:00:00 2020-03-25 00:00:00 Outpatient [facility] [id number] [facility] 2019-12-21 00:00:00 2019-12-21 00:00:00 Outpatient [facility] [id number] [facility] 2019-11-29 00:00:00 2019-11-29 00:00:00 Outpatient [facility] [id number] [facility] 2019-09-14 13:00:00 2019-09-14 13:00:00 [facility] [id number] [facility] 2019-09-13 08:00:00 2019-09-13 08:00:00 [facility] [id number] [facility] 2019-06-28 13:30:00 2019-06-28 13:30:00 [facility] [id number] [facility] 2019-06-13 08:00:00 2019-06-13 08:00:00 [facility] [id number] [facility] 2019-04-10 14:35:00 2019-04-10 14:35:00 [facility] [id number] [facility] 2019-04-02 08:00:00 2019-04-02 08:00:00 [facility] [id number] [facility] 2019-03-14 08:00:00 2019-03-14 08:00:00 [facility] [id number] [facility] 2019-03-08 09:01:00 2019-03-08 09:01:00 [facility] [id number] [facility] 2019-02-20 17:02:00 2019-02-20 17:02:00 [facility] [id number] [facility] 2019-02-07 16:26:00 2019-02-07 16:26:00 [facility] [id number] [facility] 2018-12-08 08:20:00 2018-12-08 08:20:00 [facility] [id number] [facility] 2018-08-30 08:00:00 2018-08-30 08:00:00 [facility] [id number] [facility] 2018-05-25 09:00:00 2018-05-25 09:00:00 [facility] [id number] [facility] 2018-02-23 11:15:00 2018-02-23 11:15:00 [facility] [id number] [facility] 2017-12-09 08:42:00 2017-12-09 08:42:00 [facility] [id number] [facility] 2017-11-24 11:00:00 2017-11-24 11:00:00 [facility] [id number] [facility] 2017-08-26 08:15:00 2017-08-26 08:15:00 [facility] [id number] [facility] Results Test Description Test Time Test Comments Results Result Co mments Source CBC W/AUTO [id number] 00:00:00* Test Item Value Reference Range Interpretation Comme nts NUCLEATED RBCS (test code = 19765-9) 0.0 /100 WBC'S See_Comment [Automated messa ge] The system which generated this result transmitted reference range: 0.0 /100 WBC'S. The reference range was not used to interpret this result as normal/abnormal. ABSOLUTE EOSINOPHILS (test code = 89443-8) 0.20 K/UL See_Comment [Automated messa ge] The system which generated this result transmitted reference range: 0.00-0.50 K/UL. The reference range was not used to interpret this result as normal/abnormal. ABSOLUTE LYMPHOCYTES (test code = 05105-1) 1.68 K/UL See_Comment [Automated messa ge] The system which generated this result transmitted reference range: 1.00-4.00 K/UL. The reference range was not used to interpret this result as normal/abnormal. ABSOLUTE MONOCYTES (test code = 57332-2) 0.59 K/UL See_Comment [Automated messa ge] The system which generated this result transmitted reference range: 0.20-1.00 K/UL. The reference range was not used to interpret this result as normal/abnormal. ABSOLUTE NEUTROPHILS (test code = 76035-5) 4.34 K/UL See_Comment [Automated messa ge] The system which generated this result transmitted reference range: 1.50-7.50 K/UL. The reference range was not used to interpret this result as normal/abnormal. BASOPHILS (test code = 29820-6) 1.0 % EOSINOPHILS (test code = 42915-5) 2.9 % HEMATOCRIT (test code = 64309-2) 33.5 % See_Comment L [Automated messa ge] The system which generated this result transmitted reference range: 40.0-51.0 %. The reference range was not used to interpret this result as normal/abnormal. HEMOGLOBIN (test code = 718-7) 11.7 G/DL See_Comment L [Automated messa ge] The system which generated this result transmitted reference range: 13.5-17.0 G/DL. The reference range was not used to interpret this result as normal/abnormal. LYMPHOCYTES (test code = 53070-2) 24.3 % MCH (test code = 75518-7) 32.0 PG See_Comment [Automated messa ge] The system which generated this result transmitted reference range: 25.0-33.0 PG. The reference range was not used to interpret this result as normal/abnormal. MCHC (test code = 99331-4) 34.9 G/DL See_Comment [Automated messa ge] The system which generated this result transmitted reference range: 31.0-36.0 G/DL. The reference range was not used to interpret this result as normal/abnormal. MCV (test code = 66526-6) 91.5 fL See_Comment [Automated messa ge] The system which generated this result transmitted reference range: 80.0-99.0 fL. The reference range was not used to interpret this result as normal/abnormal. MONOCYTES (test code = 71696-9) 8.6 % NEUTROPHILS (test code = 99038-6) 62.9 % PLATELET COUNT (test code = 62996-4) 210 K/UL See_Comment [Automated messa ge] The system which generated this result transmitted reference range: 130-400 K/UL. The reference range was not used to interpret this result as normal/abnormal. RBC (test code = 57495-8) 3.66 M/UL See_Comment L [Automated messa ge] The system which generated this result transmitted reference range: 4.50-6.10 M/UL. The reference range was not used to interpret this result as normal/abnormal. RDW (test code = 96490-6) 13.1 % See_Comment [Automated messa ge] The system which generated this result transmitted reference range: 11.5-15.0 %. The reference range was not used to interpret this result as normal/abnormal. WBC (test code = 82625-6) 6.9 K/UL See_Comment [Automated messa ge] The system which generated this result transmitted reference range: 3.5-11.0 K/UL. The reference range was not used to interpret this result as normal/abnormal. LIPID PANEL WITH REFLEX DIRECT [id number] 00:00:00* Test Item Value Reference Range Interpretation Comme nts CALC LDL CHOL (test code = 83706-8) 62 MG/DL See_Comment [Automated messa ge] The system which generated this result transmitted reference range: <100 MG/DL. The reference range was not used to interpret this result as normal/abnormal. CHOLESTEROL (test code = 2093-3) 117 MG/DL See_Comment [Automated messa ge] The system which generated this result transmitted reference range: <200 MG/DL. The reference range was not used to interpret this result as normal/abnormal. HDL CHOLESTEROL (test code = 2085-9) 32 MG/DL See_Comment L [Automated messa ge] The system which generated this result transmitted reference range: >39 MG/DL. The reference range was not used to interpret this result as normal/abnormal. RISK RATIO LDL/HDL (test code = 31881-4) 1.94 RATIO See_Comment [Automated message] The system which generated this result transmitted reference range: <3.55 RATIO. The reference range was not used to interpret this result as normal/abnormal. TRIGLYCERIDES (test code = 2571-8) 148 MG/DL See_Comment [Automated messa ge] The system which generated this result transmitted reference range: <150 MG/DL. The reference range was not used to interpret this result as normal/abnormal. TSH + FREE T4 [id number] 00:00:00* Test Item Value Reference Range Interpretation Comme nts FREE T4 (THYROXINE) (test code = 3024-7) 1.36 NG/DL See_Comment [Automated message] The system which generated this result transmitted reference range: 0.80-1.90 NG/DL. The reference range was not used to interpret this result as normal/abnormal. TSH, THIRD GENERATION (test code = 21593-0) 0.396 UIU/ML See_Comment L [Automated messa ge] The system which generated this result transmitted reference range: 0.400-4.100 UIU/ML. The reference range was not used to interpret this result as normal/abnormal. COMPREHENSIVE METABOLIC [id number] 00:00:00* Test Item Value Reference Range Interpretation Comme nts ALBUMIN (test code = 1751-7) 4.1 G/DL See_Comment [Automated messa ge] The system which generated this result transmitted reference range: 3.5-5.2 G/DL. The reference range was not used to interpret this result as normal/abnormal. ALKALINE PHOSPHATASE (test code = 6768-6) 64 U/L See_Comment [Automated message] The system which generated this result transmitted reference range: 40-125 U/L. The reference range was not used to interpret this result as normal/abnormal. BILIRUBIN, TOTAL (test code = 1975-2) 0.6 MG/DL See_Comment [Automated message] The system which generated this result transmitted reference range: <=1.2 MG/DL. The reference range was not used to interpret this result as normal/abnormal. BUN (test code = 3094-0) 14 MG/DL See_Comment [Automated messa ge] The system which generated this result transmitted reference range: 8-23 MG/DL. The reference range was not used to interpret this result as normal/abnormal. CALCIUM (test code = 61849-1) 8.9 MG/DL See_Comment [Automated messa ge] The system which generated this result transmitted reference range: 8.5-10.5 MG/DL. The reference range was not used to interpret this result as normal/abnormal. CALC A/G RATIO (test code = 1759-0) 1.9 RATIO See_Comment [Automated messa ge] The system which generated this result transmitted reference range: 1.0-2.6 RATIO. The reference range was not used to interpret this result as normal/abnormal. CALC BUN/CREAT (test code = 3097-3) 11 RATIO See_Comment [Automated messa ge] The system which generated this result transmitted reference range: 6-28 RATIO. The reference range was not used to interpret this result as normal/abnormal. CALC GLOBULIN (test code = 20501-2) 2.2 G/DL See_Comment [Automated messa ge] The system which generated this result transmitted reference range: 1.9-3.7 G/DL. The reference range was not used to interpret this result as normal/abnormal. CARBON DIOXIDE (test code = 1963-8) 24 MEQ/L See_Comment [Automated messa ge] The system which generated this result transmitted reference range: 19-31 MEQ/L. The reference range was not used to interpret this result as normal/abnormal. CHLORIDE (test code = 2075-0) 108 MEQ/L See_Comment H [Automated messa ge] The system which generated this result transmitted reference range: 95-107 MEQ/L. The reference range was not used to interpret this result as normal/abnormal. CREATININE (test code = 2160-0) 1.29 MG/DL See_Comment [Automated messa ge] The system which generated this result transmitted reference range: 0.80-1.40 MG/DL. The reference range was not used to interpret this result as normal/abnormal. eGFR (2020 CKD-EPI) (test code = 65712-1) 58 ML/MIN/1.73 See_Comment L [Automated messa ge] The system which generated this result transmitted reference range: >60 ML/MIN/1.73. The reference range was not used to interpret this result as normal/abnormal. GLUCOSE (test code = 1558-6) 92 MG/DL See_Comment [Automated messa ge] The system which generated this result transmitted reference range: 70-99 MG/DL. The reference range was not used to interpret this result as normal/abnormal. POTASSIUM (test code = 2823-3) 4.3 MEQ/L See_Comment [Automated messa ge] The system which generated this result transmitted reference range: 3.5-5.4 MEQ/L. The reference range was not used to interpret this result as normal/abnormal. PROTEIN, TOTAL (test code = 2885-2) 6.3 G/DL See_Comment [Automated messa ge] The system which generated this result transmitted reference range: 6.1-8.3 G/DL. The reference range was not used to interpret this result as normal/abnormal. AST (test code = 1920-8) 16 U/L See_Comment [Automated messa ge] The system which generated this result transmitted reference range: 9-50 U/L. The reference range was not used to interpret this result as normal/abnormal. ALT (test code = 1742-6) 15 U/L See_Comment [Automated messa ge] The system which generated this result transmitted reference range: 5-50 U/L. The reference range was not used to interpret this result as normal/abnormal. SODIUM (test code = 2951-2) 143 MEQ/L See_Comment [Automated messa ge] The system which generated this result transmitted reference range: 133-146 MEQ/L. The reference range was not used to interpret this result as normal/abnormal.
[2023-06-24] MEDS ORDERED: NA CHLORIDE 0.9% 1,000 ML ONE (14:41)
[2023-06-24 15:22] LABS: Absolute Basophils 0.1 K/uL (0-0.5); Absolute Eosinophils 0.1 K/uL (0-0.5); Absolute Lymphocytes (CBC) 1.6 K/uL (0.7-4.9); Absolute Monocytes 0.7 K/uL (0.1-1.3); Absolute Neutrophil 3.6 K/uL (1.8-8.0); Eosinophils % 0.9 % (0-4.4); Hematocrit 28.8 % (39.6-49.0); Hemoglobin 9.5 g/dL (13.6-17.9); Lymphocytes % 26.3 % (15.3-44.8); MCH 31.7 pg (27.0-35.0); MCV 95.9 fL (80-100); MPV 7.4 fL (7.6-11.3); Neutrophils % 60.8 % (41.7-73.7); Platelets 178 thou/uL (152-406); Red Cell Distribution Width 13.8 % (12.1-15.2)
[2023-06-24 15:30] LABS: PT Prothrombin Time 12.8 SECONDS (9.5-12.5); PTT, Activated Partial Thromb 31.3 SECONDS (24.3-36.9); Protime INR 1.17
[2023-06-24 15:39] LABS: Albumin 2.7 g/dL (3.4-5.0); Albumin/Globulin Ratio 1.1 (1.1-1.8); Anion Gap 3.2 mEq/L (5.0-15.0); Bilirubin Total 0.3 mg/dL (0.2-1.0); Globulin 2.5 g/dL (2.3-3.5); Potassium 4.2 mEq/L (3.5-5.1); Protein, Total 5.2 g/dL (6.4-8.2); Troponin High Sensitivity 7.1 pg/mL (<58.9)
--- NOTE | 2023-06-24 15:44 | RAD REPORT ---
EXAM DESCRIPTION: Davida Single View06/24/2023 3:34 pm CLINICAL HISTORY: Hypotension COMPARISON: 2022 FINDINGS: Haziness overlying the right apex is likely overlying soft tissue appearing prominent seco ndary to positioning rather than pathology. The lungs appear clear of acute infiltrate. The heart is mildly enlarged IMPRESSION: No acute abnormalities displayed
--- NOTE | 2023-06-24 19:25 | EDPHYS ---
Physician Documentation [facility] Name: Herb Pearce Age: 73 yrs Sex: Male : 1950 Arrival Date: 06/24/2023 Time: 14:17 Bed 17 Private MD: ED Physician Pancho Soliz HPI: 06/23 16:41 This 73 yrs old Male presents to ER via EMS with complaints of Syncope. rt 16:41 Patient presents to the ED with 2 falls today. The patient states that he felt dizzy, rt like he was lightheaded, states that he did not completely lose consciousness. Denies any injury. Denies other acute complaints, symptoms are moderate in severity, no other aggravating or alleviating factors.. Historical: - PMHx: 14:24 chronic back pain; Hypertension; Hypothyroidism; me1 - PSHx: 14:24 back surgery; me1 - Immunization history:: Adult Immunizations unknown. - Infectious Disease History:: Denies. - Social history:: Smoking status: Patient denies any tobacco usage or history of. - Family history:: not pertinent. ROS: 16:41 Constitutional: Negative for fever, chills, and weight loss, Cardiovascular: Negative rt for chest pain, palpitations, and edema, Respiratory: Negative for shortness of breath, cough, wheezing, and pleuritic chest pain, Abdomen/GI: Negative for abdominal pain, nausea, vomiting, diarrhea, and constipation, MS/Extremity: Negative for injury and deformity, Psych: Negative for depression, anxiety, suicide ideation, homicidal ideation, and hallucinations, 16:41 Neuro: Positive for near syncope, Negative for loss of consciousness, Exam: 16:43 Constitutional: This is a well developed, well nourished patient who is awake, alert, rt and in no acute distress. Head/Face: Normocephalic, atraumatic. Chest/axilla: Normal chest wall appearance and motion. Nontender with no deformity. No lesions are appreciated. Cardiovascular: Regular rate and rhythm with a normal S1 and S2. No gallops, murmurs, or rubs. Normal PMI, no JVD. No pulse deficits. Respiratory: Lungs have equal breath sounds bilaterally, clear to auscultation and percussion. No rales, rhonchi or wheezes noted. No increased work of breathing, no retractions or nasal flaring. Abdomen/GI: Soft, non-tender, with normal bowel sounds. No distension or tympany. No guarding or rebound. No evidence of tenderness throughout. Skin: Warm, dry with normal turgor. Normal color with no rashes, no lesions, and no evidence of cellulitis. MS/ Extremity: Pulses equal, no cyanosis. Neurovascular intact. Full, normal range of motion. Neuro: Awake and alert, GCS 15, oriented to person, place, time, and situation. Cranial nerves II-XII grossly intact. Motor strength 5/5 in all extremities. Sensory grossly intact. Cerebellar exam normal. Normal gait. 16:43 ECG was reviewed by the Attending Physician. Vital Signs: 14:23 BP 120 / 93; Pulse 64; Resp 18; Temp 98.4(O); Pulse Ox 94% on R/A; Weight 72.57 kg; me1 Pain 7/10; 14:39 BP 124 / 62 RA (man/); me1 15:00 BP 91 / 63; Pulse 60; Resp 18; Pulse Ox 98% on R/A; me1 16:00 BP 97 / 54; Pulse 56; Resp 16; Pulse Ox 100% on R/A; me1 18:00 BP 112 / 87; Pulse 72; Resp 20; Pulse Ox 99% on R/A; me1 19:00 BP 126 / 75; Pulse 60; Resp 16; Pulse Ox 99% on R/A; me1 20:00 BP 133 / 79; Pulse 68; Resp 17; Pulse Ox 98% on R/A; me1 21:00 BP 134 / 77; Pulse 69; Resp 18; Pulse Ox 98% on R/A; me1 14:23 Pain Scale: Adult me1 MDM: 14:26 Patient medically screened. rt 19:24 Differential Diagnosis: Hypotension, dehydration, electrolyte disturbance, ACS. Data rt reviewed: vital signs, nurses notes, lab test result(s), EKG, radiologic studies. Consideration of Admission/Observation Patient was admitted/placed on observation. Management of patient was discussed with the following: Hospitalist: Agrees to admit. I considered the following discharge prescriptions or medication management in the emergency department Medications were administered in the Emergency Department. See MAR. Independent interpretation of the following test(s) in the Emergency Department X-Ray: My interpretation is No consolidation seen on interpretation of x-ray images. Test considered but Not performed: CT: No head trauma, CT scan not indicated. Care significantly affected by the following chronic conditions: Hypertension, Hypothyroidism. Counseling: I had a detailed discussion with the patient and/or guardian regarding the historical points, exam findings, and any diagnostic results supporting the discharge/admit diagnosis, lab results, radiology results, the need for further work-up and treatment in the hospital. Response to treatment: the patient's symptoms have markedly improved after treatment. 06/23 14:37 Order name: Blood Culture Adult (2) rt 06/23 14:37 Order name: CBC with Diff; Complete Time: 15:50 rt 06/23 14:37 Order name: CMP; Complete Time: 15:50 rt 06/23 14:37 Order name: Lactate w/ 2H reflex if indic.; Complete Time: 15:50 rt 06/23 14:37 Order name: Protime (+inr); Complete Time: 15:50 rt 06/23 14:37 Order name: Ptt, Activated; Complete Time: 15:50 rt 06/23 14:37 Order name: Urinalysis w/ reflexes; Complete Time: 19:48 rt 06/23 14:37 Order name: Troponin High Sensitivity; Complete Time: 15:50 rt 06/23 21:35 Order name: Urinalysis w/ reflexes EDMS 06/23 14:37 Order name: Chest Single View XRAY; Complete Time: 15:50 rt 06/23 14:37 Order name: Accucheck; Complete Time: 15:17 rt 06/23 14:37 Order name: Cardiac monitoring; Complete Time: 15:17 rt 06/23 14:37 Order name: EKG - Nurse/Tech; Complete Time: 15:17 rt 06/23 14:37 Order name: IV Saline Lock - Large Bore; Complete Time: 15:12 rt 06/23 14:37 Order name: Labs collected and sent; Complete Time: 15:17 rt 06/23 14:37 Order name: O2 Per Protocol; Complete Time: 15:12 rt 06/23 14:37 Order name: O2 Sat Monitoring; Complete Time: 15:12 rt 06/23 14:37 Order name: Vital Signs; Complete Time: 15:12 rt EC:43 Rate is 56 beats/min. Rhythm is regular, Sinus bradycardia with No ectopy, LAFB. AK rt interval is normal. QRS interval is normal. QT interval is normal. No Q waves. Administered Medications: 14:40 Drug: NS 0.9% IV (30 ml/kg) 30 ml/kg IV at bolus once; Sepsis Protocol Route: IV; Rate: me1 bolus; Site: left antecubital; 15:17 Follow up: Response: No adverse reaction; IV Status: Completed infusion; IV Intake: me1 1000ml Disposition Summary: 06/24/23 19:24 Hospitalization Ordered Notes: Hospitalization Status: Observation rt Provider: Rell Olivas rt Location: Telemetry/MedSurg (observation) rt Condition: Stable rt Problem: new rt Symptoms: have improved rt Bed/Room Type: Standard rt Room Assignment: rt Diagnosis - Hypotension rt - Syncope rt - Dehydration rt Forms: - Medication Reconciliation Form rt - SBAR form rt - Leadership Thank You Letter rt Critical care time excluding procedures: 19:26 Critical care time: Bedside Care: 30 minutes, Consultation: 5 minutes. Total time: 35 rt minutes Signatures: Dispatcher [employer] EDPancho Jeffers MD MD rt Ashley Millan RN RN me1 Corrections: (The following items were deleted from the chart) 14:37 14:37 BLOOD CULTURE*+BA.LAB.BRZ ordered. EDMS EDMS 14:37 14:37 CBC+H.LAB.BRZ ordered. EDMS EDMS 14:37 14:37 COMPREHENSIVE METABOLIC PANEL+C.LAB.BRZ ordered. EDMS EDMS 14:37 14:37 LACTATE+C.LAB.BRZ ordered. EDMS EDMS 14:37 14:37 PROTIME (+INR)+COAG.LAB.BRZ ordered. EDMS EDMS 14:37 14:37 PTT, ACTIVATED+COAG.LAB.BRZ ordered. EDMS EDMS 14:37 14:37 Urinalysis+U.LAB.BRZ ordered. EDMS EDMS 14:37 14:37 Troponin High Sensitivity+C.LAB.BRZ ordered. EDMS EDMS 14:38 14:38 Chest Single View+RAD.RAD.BRZ ordered. EDMS EDMS
--- NOTE | 2023-06-24 19:25 | ER ---
Nurse's Notes [facility] Name: Herb Pearce Age: 73 yrs Sex: Male : 1950 Arrival Date: 06/24/2023 Time: 14:17 Bed 17 Private MD: Diagnosis: Hypotension;Syncope;Dehydration Presentation: 06/23 14:23 Chief complaint: EMS states: toned out for fall x2. reports patient was pumping me1 gas and fell. Got up to go inside to pay for gas and fell again. Reports patient has been c/o dizziness for some time. Coronavirus screen: Vaccine status: Patient reports receiving the 2nd dose of the covid vaccine. Ebola Screen: No symptoms or risks identified at this time. Initial Sepsis Screen: Does the patient meet any 2 criteria? No. Patient's initial sepsis screen is negative. Does the patient have a suspected source of infection? No. Patient's initial sepsis screen is negative. Risk Assessment: Do you want to hurt yourself or someone else? Patient reports no desire to harm self or others. Onset of symptoms was June 24, 2023. 14:23 Method Of Arrival: EMS: [facility] 14:23 Acuity: FRIDA 3 me1 Triage Assessment: 14:24 General: Appears uncomfortable, well groomed, well developed, well nourished, Behavior me1 is calm, cooperative, appropriate for age, Reports c/o dizziness recently. 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 Pain: Complains of pain in left lateral anterior chest and back Pain does not radiate. Pain currently is 6 out of 10 on a pain scale. Quality of pain is described as sharp, Pain began suddenly, Is continuous. Neuro: Level of Consciousness is awake, alert, obeys commands, Oriented to person, place, time, situation, Appropriate for age Reports dizziness. Cardiovascular: Capillary refill < 3 seconds Patient's skin is warm and dry. Respiratory: Airway is patent Respiratory effort is even, unlabored, Respiratory pattern is regular, symmetrical. GI: No signs and/or symptoms were reported involving the gastrointestinal system. : No signs and/or symptoms were reported regarding the genitourinary system. Derm: Skin is intact, is healthy with good turgor, Skin is pink, warm \T\ dry. Musculoskeletal: Reports pain in left lateral anterior chest and back. Injury Description: ground level fall x2. Historical: - PMHx: 14:24 chronic back pain; Hypertension; Hypothyroidism; me1 - PSHx: 14:24 back surgery; me1 - Immunization history:: Adult Immunizations unknown. - Infectious Disease History:: Denies. - Social history:: Smoking status: Patient denies any tobacco usage or history of. - Family history:: not pertinent. Screenin:30 [facility] ED Fall Risk Assessment (Adult) History of falling in the last 3 months, me1 including since admission Yes- physiologic fall (2 pts) Confusion or Disorientation No (0 pts) Intoxicated or Sedated No (0 pts) Impaired Gait No (0 pts) Mobility Assist Device Used No (0 pt) Altered Elimination No (0 pt) Score/Fall Risk Level 0 - 2 = Low Risk Maintained a safe environment, Provided non-skid footwear, Hourly rounding (assess needs \T\ fall precautionary measures) done. Abuse screen: Denies threats or abuse. Nutritional screening: No deficits noted. Tuberculosis screening: No symptoms or risk factors identified. Assessment: 14:30 General: See triage assessment. . me1 14:30 Neuro: Level of Consciousness is awake, alert, obeys commands, Oriented to person, me1 place, time, situation, Appropriate for age. Cardiovascular: Rhythm is sinus rhythm. Respiratory: Airway is patent Respiratory effort is even, unlabored, Respiratory pattern is regular, symmetrical. 21:05 General: Patient states he is tired of waiting on a room and he wants to go home. me1 Notified Dr Olivas that patient wants to leave. Dr Olivas is coming to see patient. . 21:46 General: Dr Olivas spoke with patient. Patient still wants to leave. Patient signed AMA me1 papers. . Vital Signs: 14:23 BP 120 / 93; Pulse 64; Resp 18; Temp 98.4(O); Pulse Ox 94% on R/A; Weight 72.57 kg; me1 Pain 7/10; 14:39 BP 124 / 62 RA (man/); me1 15:00 BP 91 / 63; Pulse 60; Resp 18; Pulse Ox 98% on R/A; me1 16:00 BP 97 / 54; Pulse 56; Resp 16; Pulse Ox 100% on R/A; me1 18:00 BP 112 / 87; Pulse 72; Resp 20; Pulse Ox 99% on R/A; me1 19:00 BP 126 / 75; Pulse 60; Resp 16; Pulse Ox 99% on R/A; me1 20:00 BP 133 / 79; Pulse 68; Resp 17; Pulse Ox 98% on R/A; me1 21:00 BP 134 / 77; Pulse 69; Resp 18; Pulse Ox 98% on R/A; me1 14:23 Pain Scale: Adult nm1 ED Course: 14:22 Patient arrived in ED. me1 14:22 Pancho Soliz MD is Attending Physician. rt 14:24 Triage completed. me1 14:24 Arm band placed on right wrist. Patient placed in an exam room. me1 14:25 Client placed on continuous cardiac and pulse oximetry monitoring. NIBP monitoring me1 applied. clinical research monitor on. Pulse ox on. NIBP on. 14:30 Patient has correct armband on for positive identification. Bed in low position. Call me1 light in reach. Side rails up X 1. Provided Education on: POC. Verbalized understanding. . 14:30 Maintain EMS IV. Dressing intact. Good blood return noted. Site clean \T\ dry. Gauge \T\ me 1 site: 18g LAC. 14:39 Ashley Millan, CINDY is Primary Nurse. me1 15:05 First set of blood cultures drawn by nm. mb9 15:11 Second set of blood cultures drawn. mb9 15:16 Inserted saline lock: 18 gauge in right antecubital area, using aseptic technique. mb9 15:16 EKG done, by ED staff, reviewed by Pancho Soliz MD. mb9 15:16 Initial lab(s) drawn, by nm, sent to lab. mb9 15:31 No provider procedures requiring assistance completed. me1 15:36 Chest Single View XRAY In Process Unspecified. EDMS 19:23 Rell Olivas MD is Hospitalizing Provider. rt 21:46 IV discontinued, intact, bleeding controlled, No redness/swelling at site. Pressure me1 dressing applied. 21:46 IV discontinued, intact, bleeding controlled, No redness/swelling at site. Pressure me1 dressing applied. Administered Medications: 14:40 Drug: NS 0.9% IV (30 ml/kg) 30 ml/kg IV at bolus once; Sepsis Protocol Route: IV; Rate: me1 bolus; Site: left antecubital; 15:17 Follow up: Response: No adverse reaction; IV Status: Completed infusion; IV Intake: me1 1000ml Medication: 21:47 VIS not applicable for this client. me1 Intake: 15:17 IV: 1000ml; Total: 1000ml. me1 Outcome: 19:24 Decision to Hospitalize by Provider. rt 21:48 AMA AMA form signed me1 21:48 Condition: stable 21:48 Instructed on the need for admit, 21:49 Patient left the ED. me1 Signatures: Dispatcher [employer] Frances Maxwell RN RN mb9 Pancho Soliz MD MD rt Ashley Millan RN RN me1
[2023-06-24 19:46] LABS: Specific Gravity 1.007 (1.005-1.030); Sqamous Epithelial None Seen /HPF (None Seen); Urine Bacteria None Seen /HPF (<20); Urine Bilirubin NEGATIVE (Negative); Urine Blood Negative (Negative); Urine Clarity Turbid (Clear); Urine Color Light-Yellow (Yellow); Urine Culture Reflex Order NOT NEEDED; Urine Glucose NEGATIVE (Negative); Urine Ketones NEGATIVE (Negative); Urine Microscopic Reflex YN ORDER UMIC; Urine Nitrite NEGATIVE (Negative); Urine Protein NEGATIVE (Negative); Urine RBC <5 /HPF (None Seen); Urine Urobilinogen Normal (Normal); Urine WBC <5 /HPF (<5)
[2023-06-24 22:33] VITALS: BP 134/77; TEMP 98.4; O2SAT 98
== END 2023-06-24 21:40 | disposition left against medical advice (07) ==
LOC: ER 14:17 → ERHOLD 21:32
PROVIDERS: ADMIT Family Medicine; ATTEND Internal Medicine
DX: R55 Syncope and collapse (principal); E86.0 Dehydration; I95.9 Hypotension, unspecified; G89.29 Other chronic pain; E03.9 Hypothyroidism, unspecified; Z53.29 Procedure and treatment not carried out because of patient's decision for other reasons
CPT/HCPCS: 96365; 93005; 87040 ×2; 85025; 81001; 36415; 85610; 83605; 85730; 84484; 80053; 71045; 99285; J7030